=== PATIENT | female | born 1955 | race Caucasian/White ===

== ENCOUNTER 2019-11-27 07:58 | Outpatient (CLI) | payer OTHER, SELFPAY ==
--- NOTE | 2019-12-03 12:57 | SLEEP_ITS ---
Basic Nocturnal Polysomnogram. DATE OF STUDY: 11/27/2019 ORDERING PHYSICIAN: Kiel Tadeo M.D. REASON FOR THE STUDY: Obstructive sleep apnea syndrome. HISTORY: This is a 63-year-old female, 62 inches tall, weighing 160 pounds with a body mass index of 29.3. She has complaints of non-refreshing sleep and morning headache. This has been going on for more than several years. There is excessive daytime sleepiness. There is a family history with the father and sister, both having sleep apnea. She does not awaken from sleep feeling short of breath. She frequently awakens at night with heartburn. She frequently snores and occasionally it is loud enough that others complain about it. She does not have trouble sleeping with a cold and does not gasp for breath at night. Other people do not tell her that she has problems breathing at night. She occasionally sweats excessively at night. She does not notice her heart pounding at night. She does not fall asleep during the day involuntarily and does not have loss of muscle tone with strong emotion. She does not have daytime difficulties due to sleepiness and does not feel paralyzed on waking or falling asleep. She is never afraid to go to sleep. She does not have nightmares. She frequently remembers her dreams. She does not have vivid dreamlike scenes upon awakening or falling asleep. She does not have racing thoughts, feelings of sadness, depression, or anxiety. She does not have muscular tension. She does not notice parts of her body jerking. She does not kick at night and does not have crawly achy feelings in her legs. She does not have leg pain at night. There is no morning jaw pain. Her dentist tells her that she grinds her teeth at night. She frequently is bothered by pain during the day, occasionally has pain at night, frequently wakes up feeling stiff in the morning, occasionally with sore achy muscles. She frequently wakes up with pain in the neck and spine. She has fatigue and headaches. She estimates 7 hours of sleep at night. She goes to bed between 10 and 11:00 p.m. typically waking once at night for a few minutes to go to the bathroom. She wakes in the morning at 06:30 a.m. She does usually drink coffee or tea within 2 hours of going to bed. She takes naps in the day. A short nap may be refreshing. She is usually drowsy in the morning. MEDICAL COMORBIDITIES: Gastroesophageal reflux disease, thyroid nodule, hypertension, prior history of mild sleep apnea diagnosed in 2011, chronic lymphocytic leukemia, arthritis. MEDICATIONS: 1. Felodipine 5 mg a day. 2. Quinapril 40 mg a day. 3. Meloxicam 7.5 mg 1 to 2 times a day. 4. Vitamin D 50,000 units weekly. 5. Calcium citrate once daily. 6. Tacrolimus 2 times a day. 7. Prilosec 20 mg a day. HABITS: Never smoked tobacco. Caffeine, 2 sodas and 1 tea daily. No alcohol. No recreational drugs. DESCRIPTION OF THE STUDY: On the [place] Sleepiness Scale, the score is 10. This was conducted as a full night nocturnal polysomnogram using the [employer] multiple channel system including EOG, EEG, submental EMG, EKG, nasal and oral airflow using thermistors, nasal pressure sensors, chest and abdominal belts, body position data and pulse oximetry. The study was scored using CMS guidelines. Duration of the study was 449.5 minutes, sleep time was 397.3 minutes, sleep efficiency was 88.3%. Sleep latency was short at 4.7 minutes. REM latency is normal 85.5 minutes. There were 30 awakenings. The patient spent 10.7% of the study or 47.5 minutes awake after sleep onset. Sleep architecture showed 5.8% stage 1 sleep, 54.6% stage 2 sleep, 8.1% stage 3 sleep, and 20.8% stage REM. The patient spent 15.1% of the study supine, the remainder was nonsupine. The patient h
== END 2019-11-27 07:59 | disposition home or self-care (01) ==
LOC: ANHCSM 07:58
PROVIDERS: PCP Family Medicine; Visit Provider Otolaryngology
DX: G47.33 Obstructive sleep apnea (adult) (pediatric) (principal); G47.61 Periodic limb movement disorder
CPT/HCPCS: 95810

== ENCOUNTER 2019-12-20 10:32 | Outpatient (CLI) | payer OTHER, SELFPAY ==
[2019-12-20 11:00] LABS: Influenza Control Valid (Valid)
== END 2019-12-20 10:33 | disposition home or self-care (01) ==
LOC: CHSIMG 10:35
PROVIDERS: PCP Family Medicine; Visit Provider Family Medicine
DX: C91.90 Lymphoid leukemia, unspecified not having achieved remission (principal); J02.9 Acute pharyngitis, unspecified
CPT/HCPCS: 87081; 87804; 87880

== ENCOUNTER 2020-01-08 00:27 | Day surgery (SDC) | payer OTHER, SELFPAY ==
[2020-01-02 14:13] VITALS: BMI 27.3
[2020-01-08 12:45] VITALS: BP 110/54; PULSE 96; RESP 16; TEMP 36.9; O2SAT 100
[2020-01-08] MEDS: LACTATED RINGERS 1,000 ML 150 ML IV CONT (12:50)
--- NOTE | 2020-01-08 13:03 | WPDANESEPPF ---
Anes - Initial Pre Proc Eval Procedure: Operation Date: 01/08/20 13:45 Proposed Procedures p Esophagogastroduodenoscopy & Screening Colonoscopy - Alexis Thakkar MD Date/Time: 01/08/20 13:03 Surgeon: Alexis Thakkar MD Pre Op Diagnosis: neoplasm screening, GERD Patient Data Age: 64 Gender: F Height: 5 ft 3 in Weight: 69.5 kg Last Vital Signs Temp 36.9 C 01/08/20 12:45 Pulse 96 01/08/20 12:45 Resp 16 01/08/20 12:45 BP 110/54 L 01/08/20 12:45 Pulse Ox 100 01/08/20 12:45 Allergies Allergy/AdvReac Type Severity Reaction Status Date / Time No Known Allergies Allergy Verified 01/08/20 12:36 Home Medications Medication Instructions Recorded Confirmed Type ergocalciferol (vitamin D2) 50,000 unit PO WEEKLY 01/02/20 01/08/20 History estradiol 0.01 g VAGINAL 2XW 01/02/20 01/08/20 History felodipine 5 mg PO DAILY 01/02/20 01/08/20 History meloxicam 7.5 mg PO DAILY 01/02/20 01/08/20 History omeprazole 20 mg PO DAILY 01/02/20 01/08/20 History quinapril 40 mg PO DAILY 01/02/20 01/08/20 History tacrolimus 1 applic TOPICAL DAILY 01/02/20 01/08/20 History zoledronic agnm-qkyznqdu-haibv 5 mg IV USEASDIRECTD 01/02/20 01/08/20 History [Reclast] Patient hx anesthesia problems: none Family hx anesthesia problems: none PMFSH Past Medical History Medical History Arthritis GERD (gastroesophageal reflux disease) Hypertension WALDEMAR (obstructive sleep apnea) Family History Family History Other Family history of arthritis Hypertension Social History Social History Smoking status: Never smoker Alcohol intake: current Anes - Eval Final PreProcedure Day of Procedure 01/08/20 13:03 Patient weight: overweight Heart: regular rate and rhythm Lungs: clear to auscultation Airway: Mallampati scale class II Neurological: alert and oriented Last oral intake: >/= 8 hours ASA classification: III Emergent: no Anesthetic plan: proceed Anesthesia type and monitoring: general GIVS and standard monitoring Informed Consent: The patient's anesthetic plan and its attendant risks and benefits were discussed with the patient/family/POA. Questions were solicited and answers provided to the satisfaction of the patient/family/POA.
--- NOTE | 2020-01-08 14:11 | PM.HPGS ---
History of Present Illness History of Present Illness Consent: Risks, benefits, and alternatives have been discussed and questions answered. Patient agrees to proceed with procedure. Chief complaint: neoplasm screening, GERD Narrative: Verena Shepard is a 64 year old female with GERD on ppi for years, also colon polyps and due to have another colonoscopy Review of Systems Constitutional: Constitutional: Denies headache(s) and Denies weakness Eyes: Eyes: Denies blurry vision ENT: Reports Normal hearing present, Denies headache(s) and Denies neck pain Cardiovascular: Cardiovascular: Denies chest pain and Denies dyspnea Respiratory: Respiratory: Denies dyspnea Gastrointestinal: Gastrointestinal: Reports no additional gastrointestinal complaints Genitourinary: Genitourinary: Denies dysuria Musculoskeletal: Musculoskeletal: Denies neck pain Integumentary/Breasts: Skin/Breast: Denies dry skin Neurologic: Reports Normal hearing present, Denies headache(s) and Denies weakness Psychiatric: Psychiatric: Denies anxiety Endocrine: Endocrine: Denies change in body appearance Hematologic/Lymphatic: Hematologic/Lymphatic: Denies easy bleeding Allergic/Immunologic: Allergic/Immunologic: Denies urticaria PMF Past Medical History Medical History Arthritis GERD (gastroesophageal reflux disease) Hypertension WALDEMAR (obstructive sleep apnea) Family History Family History Other Family history of arthritis Hypertension Social History Social History Smoking status: Never smoker Alcohol intake: current Meds Home Medications and Allergies Home Medications Medication Instructions Recorded Confirmed Type ergocalciferol (vitamin D2) 50,000 unit PO WEEKLY 01/02/20 01/08/20 History estradiol 0.01 g VAGINAL 2XW 01/02/20 01/08/20 History felodipine 5 mg PO DAILY 01/02/20 01/08/20 History meloxicam 7.5 mg PO DAILY 01/02/20 01/08/20 History omeprazole 20 mg PO DAILY 01/02/20 01/08/20 History quinapril 40 mg PO DAILY 01/02/20 01/08/20 History tacrolimus 1 applic TOPICAL DAILY 01/02/20 01/08/20 History zoledronic juou-vybxcvbv-rnbms 5 mg IV USEASDIRECTD 01/02/20 01/08/20 History [Reclast] Allergies Allergy/AdvReac Type Severity Reaction Status Date / Time No Known Allergies Allergy Verified 01/08/20 12:36 Vital Signs Vital Signs - 24 hr 01/08/20 12:45 Temperature 98.5 F Pulse Rate 96 Respiratory Rate 16 Blood Pressure 110/54 L Pulse Oximetry 100 Exam Const: General: comfortable and no acute distress HENMT: General nose exam: Normal nares present Eyes: General: appearance normal, both eyes and all related structures Neck: Neck: no JVD Resp: Auscultation: clear to auscultation bilaterally Cardio: Rate: regular rate Rhythm: regular rhythm GI: Inspection: non-distended GI Palp: Yes Soft to palpation Skin: General skin exam: normal color Neuro: General: gait normal Speech: normal speech Extrem: General: normal to inspection Psych: Mental Status: mental status grossly normal Assessment and Plan Assessment and plan (1) Colon polyp: Qualifiers: Colon polyp type: unspecified Colon location: unspecified part of colon Qualified Code(s): K63.5 - Polyp of colon Code(s): K63.5 - Polyp of colon Status: Acute Assessment and Plan: she is due to have another colonoscopy (2) GERD (gastroesophageal reflux disease): Qualifiers: Esophagitis presence: esophagitis presence not specified Qualified Code(s): K21.9 - Gastro-esophageal reflux disease without esophagitis Code(s): K21.9 - Gastro-esophageal reflux disease without esophagitis Status: Acute Assessment and Plan: will proceed with egd and consider biopsies (3) WALDEMAR (obstructive sleep apnea)
[2020-01-08 14:46] VITALS: BP 102/54; PULSE 77; RESP 18; O2SAT 100
[2020-01-08 14:56] VITALS: BP 104/61; PULSE 71; RESP 20; O2SAT 100
[2020-01-08 15:06] VITALS: BP 96/62; PULSE 70; RESP 18; O2SAT 100
[2020-01-08 15:11] VITALS: BP 110/55; PULSE 74; RESP 20; O2SAT 100
== END 2020-01-08 15:36 | disposition home or self-care (01) ==
PROVIDERS: PCP Family Medicine; Visit Provider Internal Medicine Gastroenterology
PROC: 0DJ08ZZ Inspection of Upper Intestinal Tract, Via Natural or Artificial Opening Endoscopic (ICD-10-PCS; CPT 43235; principal; 2020-01-08 13:45)
DX: Z12.11 Encounter for screening for malignant neoplasm of colon (principal); K57.30 Diverticulosis of large intestine without perforation or abscess without bleeding; K64.8 Other hemorrhoids; Z86.010 Personal history of colon polyps; K21.9 Gastro-esophageal reflux disease without esophagitis; K31.7 Polyp of stomach and duodenum; K44.9 Diaphragmatic hernia without obstruction or gangrene; I10 Essential (primary) hypertension; G47.33 Obstructive sleep apnea (adult) (pediatric); M19.90 Unspecified osteoarthritis, unspecified site
CPT/HCPCS: 45378; 43239; 88305; J2704; J7120

== ENCOUNTER 2020-04-05 07:45 | Outpatient (CLI) | payer OTHER, SELFPAY ==
[2020-04-05 07:57] LABS: Hematocrit 38.9 % (35.0-49.0); Hemoglobin 12.2 g/dL (12.0-15.0); Mean Corpuscular HGB Conc 31.4 g/dL (32.0-36.0); Mean Corpuscular Hemoglobin 30.8 pg (27.0-31.0); Mean Corpuscular Volume 98.2 fL (78.0-102.0); Mean Platelet Volume 9.2 fl (9.2-11.8); Platelet Count Result 209 K/mm3 (150-420); Red Blood Count 3.96 M/mm3 (4.20-5.40); Red Cell Distribution Width 13.3 % (11.6-14.4)
[2020-04-05 08:44] LABS: White Blood Count 67.3 K/mm3 (4.8-10.8)
[2020-04-05 08:45] LABS: Band Neutrophils Percent 0 % (0-6); Basophils Percent Manual 0 % (0-1); Eosinophils Absolute Manual 0.67 K/mm3 (0.02-0.5); Eosinophils Percent Manual 1 % (1-6); Lymphocytes Absolute Manual 63.93 K/mm3 (1.1-4.5); Lymphocytes Percent Manual 95 % (18-44); Monocytes Absolute Manual 0.67 K/mm3 (0.1-0.90); Monocytes Percent Manual 1 % (3-9); Neutrophils Absolute Manual 2.01 K/mm3 (1.7-7.2); Neutrophils Percent Manual 3 % (46-73); Platelet Estimate Adequate (Adequate); Smudge Cells FEW; Total Cells Counted 100
[2020-04-05 08:56] LABS: Alanine Aminotransferase 22 U/L (14-59); Albumin Level 3.8 g/dL (3.4-5.0); Alkaline Phosphatase 61 U/L (46-116); Aspartate Amino Transferase 23 U/L (15-37); Bilirubin,Total 0.3 mg/dL (0.00-1.00); Blood Urea Nitrogen 15 mg/dL (7-18); Calcium 8.5 mg/dL (8.5-10.1); Carbon Dioxide 32 mmol/L (21-32); Chloride 101 mmol/L (98-108); Estimated Glomerular Filt Rate > 60; Glucose 88 mg/dL (70-99); Lactate Dehydrogenase 169 U/L (81-234); Osmolality Calculated 287 mOsm/kg (285-295); Sodium 139 mmol/L (136-145); Total Protein 6.5 g/dL (6.4-8.2)
== END 2020-04-05 07:46 | disposition home or self-care (01) ==
LOC: CHSLAB 07:48
PROVIDERS: PCP Family Medicine; Visit Provider Internal Medicine Medical Oncology
DX: C91.10 Chronic lymphocytic leukemia of B-cell type not having achieved remission (principal)
CPT/HCPCS: 36415; 80053; 83615; 85025

== ENCOUNTER 2020-04-22 17:07 | Outpatient (CLI) | payer OTHER, SELFPAY | END 2020-04-22 17:08 | disposition home or self-care (01) | LOC: CHSLAB 17:09 | PROVIDERS: PCP Family Medicine; Visit Provider Family Medicine | DX: R50.9 Fever, unspecified (principal); R07.0 Pain in throat | CPT/HCPCS: 87081; 87880 ==

== ENCOUNTER 2020-08-27 07:18 | Outpatient (CLI) | payer OTHER, SELFPAY ==
--- NOTE | ~2020-08-27 | XR_ITS ---
XR thoracic spine 3V DATE: 08/27/2020 07:45 INDICATION: Thoracic back pain. Previous T3 and T5 compression fractures TECHNIQUE: AP, lateral and swimmer views COMPARISON: 11/14/2019 2 view chest FINDINGS: There is cupping of the superior vertebral endplate of T2 consistent with mild compression fracture deformity. 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 No other fracture or any dislocation or bone destruction is evident. IMPRESSION: Chronic compression fracture deformity of upper thoracic spine Reviewed, dictated and finalized at location A.
[2020-08-27 07:34] LABS: Hematocrit 38.2 % (35.0-49.0); Hemoglobin 11.7 g/dL (12.0-15.0); Mean Corpuscular HGB Conc 30.6 g/dL (32.0-36.0); Mean Corpuscular Hemoglobin 31.2 pg (27.0-31.0); Mean Corpuscular Volume 101.9 fL (78.0-102.0); Mean Platelet Volume 9.4 fl (9.2-11.8); Platelet Count Result 203 K/mm3 (150-420); Red Blood Count 3.75 M/mm3 (4.20-5.40); Red Cell Distribution Width 13.9 % (11.6-14.4)
[2020-08-27 09:00] LABS: Alanine Aminotransferase 27 U/L (14-59); Albumin Level 4.1 g/dL (3.4-5.0); Alkaline Phosphatase 63 U/L (46-116); Anion Gap 6 mmol/L (8-16); Aspartate Amino Transferase 20 U/L (15-37); Bilirubin,Total 0.3 mg/dL (0.00-1.00); Blood Urea Nitrogen 17 mg/dL (7-18); Calcium 8.5 mg/dL (8.5-10.1); Carbon Dioxide 32 mmol/L (21-32); Chloride 104 mmol/L (98-108); Cholesterol 238 mg/dL (0-200); Estimated Glomerular Filt Rate > 60; Ferritin 103 ng/mL (8-252); Free T4 Free Thyroxine 0.96 ng/dL (0.76-1.46); Glucose 90 mg/dL (70-99); HDL Direct 63 mg/dL (40-60); LDL Cholesterol Calculated 157 mg/dL (<130); Magnesium 2.6 mg/dL (1.8-2.4); Osmolality Calculated 295 mOsm/kg (285-295); Sodium 142 mmol/L (136-145); Thyroid Stimulating Hormone 1.96 uIU/mL (0.36-3.74); Total Protein 6.7 g/dL (6.4-8.2); Triglycerides 88 mg/dL (0-150)
[2020-08-27 09:10] LABS: Neutrophils Percent Manual 10 % (46-73); Total Cells Counted 100; White Blood Count 79.3 K/mm3 (4.8-10.8)
[2020-08-27 09:11] LABS: Band Neutrophils Percent 0 % (0-6); Basophils Percent Manual 0 % (0-1); Eosinophils Percent Manual 0 % (1-6); Lymphocytes Absolute Manual 69.78 K/mm3 (1.1-4.5); Lymphocytes Percent Manual 88 % (18-44); Monocytes Absolute Manual 1.58 K/mm3 (0.1-0.90); Monocytes Percent Manual 2 % (3-9); Neutrophils Absolute Manual 7.93 K/mm3 (1.7-7.2); Platelet Estimate Adequate (Adequate)
[2020-08-30 10:45] LABS: Vitamin D 25 Hydroxy 59 ng/mL (30-100)
== END 2020-08-27 07:19 | disposition home or self-care (01) ==
LOC: CHSLAB 07:20
PROVIDERS: PCP Family Medicine; Visit Provider Family Medicine
DX: M81.0 Age-related osteoporosis without current pathological fracture (principal); M54.6 Pain in thoracic spine; C91.90 Lymphoid leukemia, unspecified not having achieved remission; I10 Essential (primary) hypertension; G47.62 Sleep related leg cramps; E04.1 Nontoxic single thyroid nodule
CPT/HCPCS: 36415; 72072; 80053; 80061; 82306; 82728; 83735; 84439; 84443; 85025

== ENCOUNTER 2020-09-10 14:47 | Outpatient (CLI) | payer OTHER, SELFPAY ==
--- NOTE | ~2020-09-10 | MR_ITS ---
EXAMINATION: MR thoracic spine wo con DATE: 09/10/2020 15:33 INDICATION: Thoracic spine pain. TECHNIQUE: Magnetic resonance imaging (MRI) of the thoracic spine was performed without intravenous c ontrast. Sagittal localizer T1-weighted FSE of the cervical spine was obtained. Thoracic spine sequen cuauhtemoc included sagittal T2-weighted FSE, sagittal T1-weighted FSE, sagittal STIR FSE, and axial T2-weig hted FSE. COMPARISON: Thoracic spine radiographs 08/27/2020 FINDINGS: There is a chronic burst fracture of T4 with 4/5 loss of height, retropulsion of bone 2 mm into central spinal canal, focal kyphosis, and mild central canal stenosis. There is a chronic compre ssion fracture of T2 with 1/5 loss of height. There are chronic compression fractures of T5 and T6 wi th up to 1/5 loss of height. There are hemangiomas in T6, T9, and T11 vertebral bodies. There is mild ly decreased disc height at T7-T8. At T5-T6, the disc is mildly bulging with mild central canal steno sis. There is multilevel facet joint osteoarthritis, moderate to severe bilaterally from T1-T2 throug h T3-T4. There is mild neural foraminal stenosis on the right at T1-T2, T2-T3, and T3-T4 and on the l eft that T1-T2 and T2-T3. The spinal cord signal intensity is normal. IMPRESSION: 1. Mild thoracic spondylosis. Reviewed, dictated and finalized at location B. LMAN
== END 2020-09-10 14:48 | disposition home or self-care (01) ==
LOC: ANHIMG 14:49
PROVIDERS: PCP Family Medicine; Visit Provider Family Medicine
DX: M47.894 Other spondylosis, thoracic region (principal)
CPT/HCPCS: 72146

== ENCOUNTER 2020-10-07 07:46 | Outpatient (CLI) | payer OTHER, SELFPAY ==
[2020-10-07 08:00] LABS: Hematocrit 38.3 % (35.0-49.0); Hemoglobin 11.8 g/dL (12.0-15.0); Mean Corpuscular HGB Conc 30.8 g/dL (32.0-36.0); Mean Corpuscular Hemoglobin 31.5 pg (27.0-31.0); Mean Corpuscular Volume 102.1 fL (78.0-102.0); Mean Platelet Volume 9.5 fl (9.2-11.8); Platelet Count Result 189 K/mm3 (150-420); Red Blood Count 3.75 M/mm3 (4.20-5.40); Red Cell Distribution Width 13.6 % (11.6-14.4)
[2020-10-07 08:24] LABS: White Blood Count 70.8 K/mm3 (4.8-10.8)
[2020-10-07 08:55] LABS: Band Neutrophils Percent 0 % (0-6); Eosinophils Percent Manual 1 % (1-6); Lymphocytes Absolute Manual 61.59 K/mm3 (1.1-4.5); Lymphocytes Percent Manual 87 % (18-44); Monocytes Absolute Manual 2.12 K/mm3 (0.1-0.90); Monocytes Percent Manual 3 % (3-9); Neutrophils Absolute Manual 6.37 K/mm3 (1.7-7.2); Neutrophils Percent Manual 9 % (46-73); Platelet Estimate Adequate (Adequate); Total Cells Counted 100
[2020-10-07 09:16] LABS: Alanine Aminotransferase 28 U/L (14-59); Albumin Level 4.1 g/dL (3.4-5.0); Alkaline Phosphatase 58 U/L (46-116); Anion Gap 9 mmol/L (8-16); Aspartate Amino Transferase 23 U/L (15-37); Bilirubin,Total 0.3 mg/dL (0.00-1.00); Blood Urea Nitrogen 11 mg/dL (7-18); Calcium 8.5 mg/dL (8.5-10.1); Carbon Dioxide 31 mmol/L (21-32); Chloride 103 mmol/L (98-108); Estimated Glomerular Filt Rate > 60; Glucose 90 mg/dL (70-99); Lactate Dehydrogenase 195 U/L (81-234); Osmolality Calculated 295 mOsm/kg (285-295); Potassium 3.9 mmol/L (3.5-5.1); Sodium 143 mmol/L (136-145); Total Protein 6.6 g/dL (6.4-8.2)
[2020-10-12 15:35] LABS: Immunoglobulin A 67 mg/dL (70-320); Immunoglobulin G 534 mg/dL (600-1540); Immunoglobulin M 32 mg/dL (50-300)
== END 2020-10-07 07:47 | disposition home or self-care (01) ==
PROVIDERS: PCP Family Medicine; Visit Provider Internal Medicine Infectious Disease
DX: C91.90 Lymphoid leukemia, unspecified not having achieved remission (principal)
CPT/HCPCS: 36415; 80053; 82784; 83615; 85025

== ENCOUNTER 2020-12-01 13:30 | Outpatient (CLI) | payer OTHER, SELFPAY ==
--- NOTE | ~2020-12-01 | XR_ITS ---
XR chest 2V DATE: 12/01/2020 13:51 INDICATION: History of tuberculosis TECHNIQUE: PA and lateral views COMPARISON: 11/14/2019 PA and lateral chest FINDINGS: Normal heart size. No hilar or mediastinal enlargement. No pulmonary infiltrate or consolidation, pleural effusion or pulmonary vascular congestion or pneumo thorax. There is severe anterior wedging and loss of height of T4 with associated gibbus. There is mild loss of height and anterior wedging at T5. These findings are stable since 11/14/2019. Diffuse osteopenia. Status post cholecystectomy IMPRESSION: No active cardiopulmonary disease or significant change since 11/14/2019 Reviewed, dictated and finalized at location A. GED CARE NURSE IMPRESSION: No active cardiopulmonary disease or significant change since 2019
== END 2020-12-01 13:31 | disposition home or self-care (01) ==
PROVIDERS: PCP Family Medicine; Visit Provider Family Medicine
DX: Z86.11 Personal history of tuberculosis (principal)
CPT/HCPCS: 71046

== ENCOUNTER 2020-12-11 12:33 | Outpatient (CLI) | payer OTHER, SELFPAY ==
[2020-12-11 12:45] LABS: Hematocrit 36.8 % (35.0-42.0); Hemoglobin 11.5 g/dL (11.7-13.8); Mean Corpuscular HGB Conc 31.3 g/dL (32.0-36.0); Mean Corpuscular Hemoglobin 31.7 pg (27.0-31.0); Mean Corpuscular Volume 101.4 fL (78.0-102.0); Mean Platelet Volume 9.5 fl (9.2-11.8); Platelet Count Result 195 K/mm3 (150-420); Red Blood Count 3.63 M/mm3 (4.20-5.40); Red Cell Distribution Width 13.2 % (11.6-14.4)
[2020-12-11 12:51] LABS: White Blood Count 74.3 K/mm3 (4.8-10.8)
[2020-12-11 13:09] LABS: Alanine Aminotransferase 28 U/L (14-59); Albumin Level 4.3 g/dL (3.4-5.0); Alkaline Phosphatase 59 U/L (46-116); Anion Gap 8 mmol/L (8-16); Aspartate Amino Transferase 25 U/L (15-37); Bilirubin,Total 0.3 mg/dL (0.00-1.00); Blood Urea Nitrogen 15 mg/dL (7-18); Calcium 9.5 mg/dL (8.5-10.1); Carbon Dioxide 31 mmol/L (21-32); Chloride 101 mmol/L (98-108); Estimated Glomerular Filt Rate > 60; Glucose 94 mg/dL (70-99); Lactate Dehydrogenase 193 U/L (81-234); Osmolality Calculated 290 mOsm/kg (285-295); Potassium 4.1 mmol/L (3.5-5.1); Sodium 140 mmol/L (136-145)
[2020-12-11 13:10] LABS: Band Neutrophils Percent 0 % (0-6); Eosinophils Absolute Manual 0.74 K/mm3 (0.02-0.5); Eosinophils Percent Manual 1 % (1-6); Lymphocytes Absolute Manual 66.87 K/mm3 (1.1-4.5); Lymphocytes Percent Manual 90 % (18-44); Monocytes Absolute Manual 1.48 K/mm3 (0.1-0.90); Monocytes Percent Manual 2 % (3-9); Neutrophils Percent Manual 7 % (46-73); Platelet Estimate Adequate (Adequate); Total Cells Counted 100
== END 2020-12-11 12:34 | disposition home or self-care (01) ==
LOC: CHSLAB 12:35
PROVIDERS: PCP Family Medicine; Visit Provider Internal Medicine Medical Oncology
DX: C91.10 Chronic lymphocytic leukemia of B-cell type not having achieved remission (principal)
CPT/HCPCS: 36415; 80053; 83615; 85025

== ENCOUNTER 2021-01-02 10:47 | Outpatient (CLI) | payer OTHER, SELFPAY ==
--- NOTE | ~2021-01-02 | XR_ITS ---
EXAMINATION: XR ribs RT 2V DATE: 01/02/2021 11:10 INDICATION: Chest and rib pain. TECHNIQUE: 3 views of the right ribs were obtained. COMPARISON: Chest radiograph dated 12/01/2020 FINDINGS: Minimally displaced fracture at the anterior right 10th rib. Visualized portions of the lungs are arron ar with no focal airspace opacities, pulmonary edema, pleural effusion or pneumothorax. Heart size is normal. Cholecystectomy clips in right upper quadrant. IMPRESSION: 1. Minimally displaced anterior right 10th rib fracture. No evident acute cardiopulmonary disease. Reviewed, dictated and finalized at location B. ER IMPRESSION: 1. Minimally displaced anterior right 10th rib fracture. No evident acute cardi opulmonary disease.
== END 2021-01-02 10:48 | disposition home or self-care (01) ==
LOC: CHSIMG 10:49
PROVIDERS: PCP Family Medicine; Visit Provider Family Medicine
DX: R07.9 Chest pain, unspecified (principal)
CPT/HCPCS: 71100

== ENCOUNTER 2021-01-06 15:06 | Outpatient (RCR) | payer OTHER, SELFPAY ==
--- NOTE | 2021-01-09 12:41 | PTOPEVAL ---
Thank you for referring Verena Shepard to [facility].? The patient is scheduled to be seen for therapy? __2__x/week for 8 visits. Please review, sign, date and return this plan of care RENATO. I agree with and certify that the following plan of care is medically necessary. Referring Physician Date Admitting Provider: Attending Provider: Amado Oliver, Referring Provider: *PT Outpatient Evaluation Start: 01/06/21 15:08 Freq: Status: Active Protocol: Document 01/06/21 15:00 FRANK (Rec: 01/09/21 12:40 FRANK [id number]) Therapy Assessment Status Assessment Status Assessment Status Evaluation Outpatient Past Medical History Neurological History Hx Neurological Disorders No Significant History Cardiovascular History Hx Hypertension Yes Respiratory History Hx Other Respiratory Disorders Yes: Latent TB Gastrointestinal History Hx Cholecystectomy Yes Hx Gastroesophageal Reflux Disease Yes Genitourinary History Hx Genitourinary Disorders No Significant History Musculoskeletal History Hx Arthritis Yes Hx Osteoporosis Yes Hematological History Hx Other Hematological Disorders Yes: CLL- chronic lymphocytic leukemia Endocrine History Hx Other Endocrine Disorders Yes: nodule- benign HEENT History Hx HEENT Disorders No Significant History Integumentary History Hx Other Skin Disorders Yes: rosacea Reproductive History Hx Post Menopausal Yes Psychosocial History Hx Psychiatric Disorders No Significant History Pain History History of Any Previous or Ongoing No Significant History Instance of Pain Anesthesia History Hx Anesthesia Reactions No Significant History Evaluation Information Problem Diagnosis s/p right TKA Onset 12/16/20 Subjective Information Pt. reports that she underwent Query Text:As Reported By Patient/ knee surgery on 12/16/20. She Family states that she has been participating in HH. She states that her last knee measurement was 110 degrees of flexion. She reports that she does have pain that gets more intense with activity. She reports that she is currently not driving and continues to use a walker for ambulation. Pt. goal for PT is to be able to walk normal and improve her knee mobility. Prior Level of Function Activity Level (Last 3 Months) Occupation
== END 2021-02-03 16:23 | disposition home or self-care (01) ==
LOC: CHSPT 15:06
PROVIDERS: Visit Provider Orthopaedic Surgery Adult Reconstructive Orthopaedic Surgery
DX: Z96.651 Presence of right artificial knee joint (principal)
CPT/HCPCS: 97016; 97110; 97112; 97161; 97530

== ENCOUNTER 2021-04-03 07:21 | Outpatient (CLI) | payer OTHER, SELFPAY ==
[2021-04-03 07:38] LABS: Hematocrit 36.2 % (35.0-42.0); Hemoglobin 11.3 g/dL (11.7-13.8); Mean Corpuscular HGB Conc 31.2 g/dL (32.0-36.0); Mean Corpuscular Hemoglobin 30.6 pg (27.0-31.0); Mean Corpuscular Volume 98.1 fL (78.0-102.0); Mean Platelet Volume 9.7 fl (9.2-11.8); Platelet Count Result 178 K/mm3 (150-420); Red Blood Count 3.69 M/mm3 (4.20-5.40)
[2021-04-03 08:37] LABS: White Blood Count 63.8 K/mm3 (4.8-10.8)
[2021-04-03 08:39] LABS: Band Neutrophils Percent 0 % (0-6); Basophils Percent Manual 0 % (0-1); Eosinophils Percent Manual 0 % (1-6); Lymphocytes Absolute Manual 61.24 K/mm3 (1.1-4.5); Lymphocytes Percent Manual 96 % (18-44); Monocytes Percent Manual 0 % (3-9); Neutrophils Absolute Manual 2.55 K/mm3 (1.7-7.2); Neutrophils Percent Manual 4 % (46-73); Total Cells Counted 100
[2021-04-03 08:40] LABS: Platelet Estimate Adequate (Adequate)
[2021-04-03 08:41] LABS: Smudge Cells FEW
[2021-04-03 08:53] LABS: Alanine Aminotransferase 28 U/L (14-59); Albumin Level 3.9 g/dL (3.4-5.0); Alkaline Phosphatase 76 U/L (46-116); Anion Gap 8 mmol/L (8-16); Aspartate Amino Transferase 25 U/L (15-37); Bilirubin,Total 0.3 mg/dL (0.00-1.00); Blood Urea Nitrogen 11 mg/dL (7-18); Calcium 8.6 mg/dL (8.5-10.1); Carbon Dioxide 31 mmol/L (21-32); Chloride 103 mmol/L (98-108); Cholesterol 150 mg/dL (0-200); Estimated Glomerular Filt Rate > 60; Glucose 90 mg/dL (70-99); HDL Direct 43 mg/dL (40-60); LDL Cholesterol Calculated 93 mg/dL (<130); Lactate Dehydrogenase 168 U/L (81-234); Osmolality Calculated 293 mOsm/kg (285-295); Potassium 4.1 mmol/L (3.5-5.1); Sodium 142 mmol/L (136-145); Total Protein 6.2 g/dL (6.4-8.2); Triglycerides 72 mg/dL (0-150)
[2021-04-06 11:50] LABS: Immunoglobulin A 57 mg/dL (70-320); Immunoglobulin G 570 mg/dL (600-1540)
[2021-04-06 12:26] LABS: Immunoglobulin M 24 mg/dL (50-300)
== END 2021-04-03 07:22 | disposition home or self-care (01) ==
LOC: CHSLAB 07:26
PROVIDERS: PCP Family Medicine; Visit Provider Internal Medicine Infectious Disease
DX: E78.2 Mixed hyperlipidemia (principal); C91.90 Lymphoid leukemia, unspecified not having achieved remission
CPT/HCPCS: 36415; 80053; 80061; 82784; 83615; 85025; 86334

== ENCOUNTER 2021-06-11 13:21 | Outpatient (CLI) | payer OTHER, SELFPAY | END 2021-06-11 13:22 | disposition home or self-care (01) | LOC: CHSLAB 13:23 | PROVIDERS: PCP Family Medicine; Visit Provider Family Medicine | DX: R07.0 Pain in throat (principal) | CPT/HCPCS: 87081; 87880 ==

== ENCOUNTER 2021-07-09 07:39 | Outpatient (CLI) | payer OTHER, SELFPAY ==
[2021-07-09 07:53] LABS: Hematocrit 38.3 % (35.0-42.0); Hemoglobin 11.8 g/dL (11.7-13.8); Mean Corpuscular HGB Conc 30.8 g/dL (32.0-36.0); Mean Corpuscular Hemoglobin 30.5 pg (27.0-31.0); Mean Platelet Volume 9.4 fl (9.2-11.8); Platelet Count Result 217 K/mm3 (150-420); Red Blood Count 3.87 M/mm3 (4.20-5.40); Red Cell Distribution Width 14.4 % (11.6-14.4)
[2021-07-09 08:57] LABS: Alanine Aminotransferase 31 U/L (14-59); Albumin Level 4.2 g/dL (3.4-5.0); Alkaline Phosphatase 68 U/L (46-116); Anion Gap 9 mmol/L (8-16); Aspartate Amino Transferase 22 U/L (15-37); Bilirubin,Total 0.4 mg/dL (0.00-1.00); Blood Urea Nitrogen 13 mg/dL (7-18); Calcium 8.9 mg/dL (8.5-10.1); Carbon Dioxide 30 mmol/L (21-32); Chloride 104 mmol/L (98-108); Estimated Glomerular Filt Rate > 60; Glucose 92 mg/dL (70-99); Lactate Dehydrogenase 165 U/L (81-234); Osmolality Calculated 296 mOsm/kg (285-295); Potassium 4.1 mmol/L (3.5-5.1); Sodium 143 mmol/L (136-145); Total Protein 6.7 g/dL (6.4-8.2)
[2021-07-09 09:08] LABS: Band Neutrophils Percent 0 % (0-6); Lymphocytes Absolute Manual 82.81 K/mm3 (1.1-4.5); Lymphocytes Percent Manual 91 % (18-44); Monocytes Absolute Manual 2.73 K/mm3 (0.1-0.90); Monocytes Percent Manual 3 % (3-9); Neutrophils Absolute Manual 4.55 K/mm3 (1.7-7.2); Neutrophils Percent Manual 5 % (46-73); Total Cells Counted 100
[2021-07-09 09:09] LABS: Eosinophils Absolute Manual 0.91 K/mm3 (0.02-0.5); Eosinophils Percent Manual 1 % (1-6); Platelet Estimate Adequate (Adequate)
[2021-07-12 12:44] LABS: Immunoglobulin A 62 mg/dL (70-320); Immunoglobulin G 647 mg/dL (600-1540); Immunoglobulin M 25 mg/dL (50-300)
== END 2021-07-09 07:40 | disposition home or self-care (01) ==
PROVIDERS: PCP Family Medicine
DX: C91.10 Chronic lymphocytic leukemia of B-cell type not having achieved remission (principal); D80.1 Nonfamilial hypogammaglobulinemia
CPT/HCPCS: 36415; 80053; 82784; 83615; 85025

== ENCOUNTER 2021-10-06 12:31 | Outpatient (CLI) | payer OTHER, SELFPAY ==
[2021-10-06 12:51] LABS: Hematocrit 35.9 % (35.0-42.0); Hemoglobin 11.6 g/dL (11.7-13.8); Mean Corpuscular HGB Conc 32.3 g/dL (32.0-36.0); Mean Corpuscular Hemoglobin 30.9 pg (27.0-31.0); Mean Corpuscular Volume 95.7 fL (78.0-102.0); Mean Platelet Volume 9.4 fl (9.2-11.8); Platelet Count Result 174 K/mm3 (150-420); Red Blood Count 3.75 M/mm3 (4.20-5.40); Red Cell Distribution Width 13.2 % (11.6-14.4)
[2021-10-06 13:06] LABS: White Blood Count 107.1 K/mm3 (4.8-10.8)
[2021-10-06 13:34] LABS: Band Neutrophils Percent 0 % (0-6); Lymphocytes Absolute Manual 100.67 K/mm3 (1.1-4.5); Lymphocytes Percent Manual 94 % (18-44); Monocytes Absolute Manual 2.14 K/mm3 (0.1-0.90); Monocytes Percent Manual 2 % (3-9); Neutrophils Absolute Manual 4.28 K/mm3 (1.7-7.2); Neutrophils Percent Manual 4 % (46-73); Platelet Estimate Adequate (Adequate); Total Cells Counted 100
[2021-10-06 14:04] LABS: Alanine Aminotransferase 23 U/L (14-59); Albumin Level 4.2 g/dL (3.4-5.0); Alkaline Phosphatase 70 U/L (46-116); Anion Gap 9 mmol/L (8-16); Aspartate Amino Transferase 18 U/L (15-37); Bilirubin,Total 0.5 mg/dL (0.00-1.00); Blood Urea Nitrogen 16 mg/dL (7-18); Calcium 8.7 mg/dL (8.5-10.1); Carbon Dioxide 31 mmol/L (21-32); Chloride 97 mmol/L (98-108); Estimated Glomerular Filt Rate > 60; Glucose 86 mg/dL (70-99); Lactate Dehydrogenase 188 U/L (81-234); Osmolality Calculated 284 mOsm/kg (285-295); Potassium 3.8 mmol/L (3.5-5.1); Sodium 137 mmol/L (136-145); Total Protein 6.5 g/dL (6.4-8.2)
[2021-10-08 21:32] LABS: Immunoglobulin A 56 mg/dL (70-320); Immunoglobulin G 590 mg/dL (600-1540); Immunoglobulin M 19 mg/dL (50-300)
== END 2021-10-06 12:32 | disposition home or self-care (01) ==
PROVIDERS: PCP Family Medicine
DX: E78.2 Mixed hyperlipidemia (principal); I10 Essential (primary) hypertension; C91.10 Chronic lymphocytic leukemia of B-cell type not having achieved remission; D80.1 Nonfamilial hypogammaglobulinemia
CPT/HCPCS: 36415; 80053; 82784; 83615; 85025

== ENCOUNTER 2025-04-17 01:28 | Day surgery (SDC) | payer MEDICARE, OTHER, SELFPAY ==
[2025-04-05 09:33] VITALS: BMI 29.7
--- OUTSIDE RECORDS SUMMARY | 2025-04-17 01:32 | XMS_ITS ---
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 She is had longstanding Raynaud's that long precedes her RS3PE. I discussed with her that if possible changing her beta-arash would likely improve this. If she needs additional antihypertensive a calcium channel arash such as amlodipine could helps symptoms . Assessment & Plan (11/27/2022 1:00 PM UX VISUAL DESIGNER): - Not currently having active flare of joint symptoms - PRN meloxicam if develops joint pain Assessment & Plan (10/11/2022 9:19 AM UX VISUAL DESIGNER): Her syndrome is likely associated with her CLL and I will await her CT to determine if treatment is being considered. I discussed with her this is the case, it will likely treat her arthritis as well. If this is negative, I would actually consider adding hydroxychloroquine since she has significant osteoporosis and we would like to avoid steroid treatment except when she has a severe flare. She does feel the increase meloxicam is otherwise successful. We discussed possible food influences but I think this is unlikely. I reviewed potential side effects of hydroxychloroquine and will review her CT when it was available. Inactive tuberculosis 09/10/2021 Assessment & Plan (12/03/2022 9:35 AM UX VISUAL DESIGNER): - history of latent tuberculosis with positive PPD. - completed 4 month course of rifampin in August 2021 and completed this in December 2021. - repeat Tspot performed on was negative. - no contraindication to starting obinutuzumab, no need for continued monitoring needed to assess for TB. - no need for further follow up with ID, patient is cleared from an ID standpoint as noted above. Assessment & Plan (11/27/2022 12:45 PM UX VISUAL DESIGNER): - Patient known to have history of latent TB with prior positive quantiferon gold - s/p treatment with rifampin x 4 months - Most recent T-spot checked in September 2022 prior to initiating treatment was negative Infected epidermoid cyst 07/23/2021 Hypogammaglobulinemia 04/15/2021 WALDEMAR (obstructive sleep apnea) 12/15/2020 Hypertension 12/15/2020 Assessment & Plan (11/27/2022 12:46 PM UX VISUAL DESIGNER): - Currently normotensive - Plan to continue home medications with metoprolol 100 mg daily, lisinopril 20 mg daily, hydrochlorothiazide 25 mg daily Hiatal hernia 12/15/2020 Primary osteoarthritis of both knees 11/19/2020 Complex tear of medial menis cus of right knee as current injury 07/09/2020 Thyroid nodule 01/09/2020 Osteoarthritis involving mul tiple joints on both sides of body 08/22/2019 Age-related osteoporosis wit hout current pathological fracture 08/01/2019 Compression fracture of spine 11/23/2018 Mid back pain 11/23/2018 Muscle spasm 11/23/2018 CLL (chronic lymphocytic leukemia) ([facility]) 07/2017 Assessment & Plan (11/27/2022 1:00 PM UX VISUAL DESIGNER): - Originally diagnosed with CLL in 2017 - Follows with Dr. Mitchell - After period of observation developed progressive anemia and splenomegaly, decision was made to proceed with treatment - Started obinutuzumab on 11/24 - Recently started on treatment with obinutuzumab (currently day +4) - Plan to continue allopurinol daily for TLS prophylaxis, check uric acid, phos levels Vitamin D deficiency disease 02/06/2013 Assessment & Plan (11/27/2022 11:03 AM UX VISUAL DESIGNER): - Continue daily vitamin D supplementation Osteoporosis 02/01/2013 Notalgia 12/11/2012 Current Treatment and Therapy Plans IV Maintenance Therapy Plan* Plan Start Date:01/19/2023 Plan Provider:Laura Mitchell MD Linked Problems CLL (chronic lymphocytic heavenly kemia) ([facility]) Treatment Medications No medications scheduled. Other Current Plans romosozumab ([facility]) THERAPY PLAN* Plan Start Date:08/10/2023 Plan Provider:Mo Diamond MD Linked Problems Age-related osteoporosis wit hout current pathological fracture Treatment Medications No medications scheduled. Zoledronic Acid (Reclast) Infusion* Plan Start Date:12/13/2024 Plan Provider:Mo Dimaond MD Linked Problems Age-related osteoporosis wit hout current pathological fracture Treatment Medications No medications scheduled. Zoledronic Acid (Reclast) Infusion* Plan Start Date:12/17/2024 Plan Provider:Mo Diamond MD Linked Problems Age-related osteoporosis wit hout current pathological fracture Treatment Medications No medications scheduled. Past Treatment and Therapy Plans Oncology Chemotherapy Treatment Plan Name Start Date Discontinue Date Treatment Medications Discontinue Reason Plan Provider Cycles oBINutuzumab / Venetoclax - CLL 3 01/11/2024 oBINutuzumab (GAZYVA) IVPB 1,000 mg in 290 mLoBINutuzumab (GAZYVA) IVPB 100 mg in 100 mLoBINutuzumab (GAZYVA) IVPB 900 mg in 250 mL Change in Level of Care Laura Mitchell MD 13 of 14 cycles started Lifetime Dose Tracking * Chemical Lifetime Dose Automatic Entry Manual Entr y DLP 1,570 mGycm 1,570 mGycm 0 mGycm Resolved Problems Problem Noted Date Diagnosed Date Resolved Date Fever 11/27/2022 2022 Assessment & Plan (11/27/2022 12:59 PM UX VISUAL DESIGNER): - Admitting with fever in the setting of recent initiation of obinutuzumab for CLL (currently day +4); differential includes bacterial vs. Viral infection vs. Delayed fever from obinutuzumab infusion - Neutrophil count at [facility] (~1400) - Treating for neutropenic fever with cefepime (11/27-) - Re-check blood cultures, UA at [facility] bland, not concerning for infection - Repeat CXR - Repeat RVP ([facility] flu/Covid swab was negative, but was not full viral panel)
--- OUTSIDE RECORDS SUMMARY | 2025-04-17 01:32 | XMS_ITS | Data Portability ---
[facility], [facility] IP Address [address] [place] [address] Assessment No assessment recorded. Plan of Treatment Reminders Order Date Submit Date Provider Last Modified By Organization Details Last Modified Time Details Appointments None recorded. Lab rapid flu (A+B) 2023 024 [email or web address] In-Office Order, Internal Use Only DO Not Attach Compendium DO Not Attach Compendium, Do Not Delete/merge, 14:29:22 rapid SARS CoV + SARS CoV 2 Ag, QL IA, respirato ry specimen 2023 024 tdrummonds In-Office Order, Internal Use Only DO Not Attach Compendium DO Not Attach Compendium, Do Not Delete/merge, [id number] 14:29:17 rapid strep group A, throat 2023 024 [email or web address] In-Office Order, Internal Use Only DO Not Attach Compendium DO Not Attach Compendium, Do Not Delete/merge, 14:29:34 Referral None recorded. Procedures None recorded. Surgeries None recorded. Imaging None recorded. Medication Orders None recorded. Patient TargetsNo targets recorded. Patient Instructions Encounter Date Encounter Id Patient Instructions Last Modified By Organization Details Last Modified Time 02/25/2024 [id number] -continue zyrtec/claritin and flonase for sinus congestion/drain age and mucinex prn chest congestion -tylenol/motrin prn fever/pain -increase fluids/rest -RTC as needed [email or web address] Not available 02/25/2024 14:33:03 Reason for Referral None Reported. Results Created Date Observation Date Name Description Value Unit Range Abnormal Flag Note LastModifiedBy Organization Detail LastModifiedTime 02/25/20 24 02/25/2024 rapid strep group A, throa t Strep A negati ve Not Available In-Office Order Internal Use Only DO Not Attach Compendium DO Not Attach Compendium, Do Not Delete/merge, [id number] 02/25/2024 14:28:52 02/25/2002/25/2024 rapid flu (A+B) Flu A negati ve Not Available In-Office Order Internal Use Only DO Not Attach Compendium DO Not Attach Compendium, Do Not Delete/merge, [id number] 02/25/2024 14:28:47 02/25/2002/25/2024 rapid flu (A+B) Flu B negati ve Not Available In-Office Order Internal Use Only DO Not Attach Compendium DO Not Attach Compendium, Do Not Delete/merge, [id number] 02/25/2024 14:28:47 02/25/2002/25/2024 rapid SARS CoV + SARS CoV 2 Ag, QL IA, respi rator y speci men Unknown Analyte negati ve Not Available In-Office Order Internal Use Only DO Not Attach Compendium DO Not Attach Compendium, Do Not Delete/merge, [id number] 02/25/2024 14:28:48 Result Notes None recorded. Procedures Surgical History Date Name Laterality Status Provider Name and Address Organization Details Recorded Time Gallbladder completed [facility] 02/25/2024 14:18:42 total knee replacement completed [facility] 02/25/2024 14:18:53 Imaging Results None recorded. Procedure Notes None recorded. Medical Equipment None Reported. Allergies No known drug allergies Medications Name Sig Start Date Stop Date Status Note LastModified by Organization Details LastModified Time atorvastati n 10 mg tablet TAKE ONE TABLET BY MOUTH TUESDAY, TUESDAY , TUESDAY active Not Available Not Available No t Available fluconazole 150 mg tablet TAKE 1 TABLET BY MOUTH DIRECTED active Not Available Not Available No t Available benzonatate 200 mg capsule 02/24 completed Not Available Not Available Not Available metoprolol succinate ER 50 mg tablet,exte nded release 24 hr TAKE 1 TABLET BY MOUTH DAILY active Not Available Not Available No t Available lisinopril 20 mg tablet TAKE 1 TABLET BY MOUTH DAILY active Not Available Not Available No t Available fluorouraci l 5 % topical cream APPLY TOPICALLY TO THE AFFECTED AREA TWICE DAILY FOR 21 DAYS active Not Available Not Available No t Available meloxicam 7.5 mg tablet TAKE 1 TABLET BY MOUTH DAILY NEEDED active Not Available Not Available No t Available oseltamivir 75 mg capsule TAKE 1 CAPSULE BY MOUTH DAILY FOR 10 DAYS active Not Available Not Available No t Available omeprazole 20 mg capsule,del ayed release TAKE ONE TO TWO CAPSULES BY MOUTH DAILY active Not Available Not Available No t Available hydrochloro thiazide 25 mg tablet TAKE 1 TABLET BY MOUTH DAILY active Not Available Not Available No t Available ergocalcife rol (vitamin D2) 1,250 mcg (50,000 unit) capsule TAKE 1 CAPSULE BY MOUTH ONCE A WEEK active Not Available Not Available No t Available levofloxaci n 500 mg tablet TAKE 1 TABLET BY MOUTH DAILY FOR 7 DAYS 02/24 completed Not Available Not Available Not Available estradiol 0.01% (0.1 mg/gram) vaginal cream INSERT 1G BY VAGINAL ROUTE ONCE WEEKLY active Not Available Not Available No t Available methylpredn isolone 4 mg tablets in a dose pack FOLLOW PACKAGE DIRECTION S 02/24 completed Not Available Not Available Not Available albuterol sulfate HFA 90 mcg/actuati on aerosol inhaler INHALE 2 PUFFS BY MOUTH EVERY 6 HOURS NEEDED FOR WHEEZING OR COUGH active Not Available Not Available No t Available amoxicillin 875 mg-potassiu m clavulanate 125 mg tablet TAKE 1 TABLET BY MOUTH TWICE DAILY UNTIL ALL TAKEN 02/24 completed Not Available Not Available Not Available chlorhexidi ne gluconate 0.12 % mouthwash active Not Available Not Available No t Available Vitals Date Recorded Body height Body mass index (BMI) Body weight Body temperature Heart rate Respiratory rate Oxygen saturation Oxygen saturation in Arterial blood by Pulse oximetry Systolic blood pressure Diastolic blood pressure Provider Name and Address Organization Details Last Updated DateTime 4 157.48 cm 29.3 kg/m2 73944.7 8 g 98.1 [degF] 81 /min 16 /min 98 % 98 % 150 mm[Hg] 84 mm[Hg] Angeles COPELAND [facility] 4 14:17:16 Social History Question Answer Notes LastModified by Organizat ion Details LastModified Time Tobacco Smoking Status Never Smoker [place] Shikha campbell [facility] 02/25/2024 14:18:28 What Was The Date Of Your Most Recent Tobacco Screening? 02/25/2024 Information not available 02/25/2024 Sex: Unknown Functional Status Question Answer Note LastModified by Organization D etails LastModified Time Do you or have you ever used any other forms of tobacco or nicotine? No Information not available 02/25/2024 Mental Status None recorded. Family History Nothing Reported. Medical History Condition Response CANCER: SPECIFY Y Gynecological HistoryNo gynecological history recorded. Obstetrics History GPAL:G 0 P 0 0 0 0 Past Encounters Encounter ID Performer Location Encounter Start Date Encounter Closed Date Diagnosis/Indication Diagnosis SNOMED-CT Code Diagnosis ICD10 Code Diagnosis Note [id number] AARON KAUR [facility] [address] [place] [address] 02/25/2024 13:47:45 02/27/2024 17:49:38 Viral upper respiratory tract infection 707239658 J06.9 Rapid COVID, flu, and strep negative.A dvised patient to retest in 12-24 hours for confirmati on. Health Concerns Section Related Observation LastModified by Organization Detai ls LastModified Time None Recorded Concern Status LastModified by Organization Details LastModified Time None Recorded Advance Directives Directive None Recorded Payers Insurance Date Sequence Insurance Name Policy Number Policy [place] Covered Member ID [place] Member ID Guarantor Name 03/03/2025 1 [place] Verena J [facility] [id number] [facility] 02/27/2024 2 [facility] (MEDICARE SUPPLEMENT) Verena J [facility] [id number] [facility] Notes Date Note Type Note Provider Name and Address Organization Details Recorded Time 02/25/2024 text/html 68 year old female presents for congestion, runny nose, scratchy throat and cough since yesterday. 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 She presents for covid, flu and strep testing. Patient has used antihistamines, sudafed, and flonase with relief. She has NKDA. AARON KAUR [address], [place], [address], [facility] 02/25/2024 14:33:16 OBGyn Episode No OBEpisode recorded.
--- OUTSIDE RECORDS SUMMARY | 2025-04-17 01:33 | XMS_ITS | Encounter Summary ---
Author Organization [facility] Address [address] [place] [address] Phone Care Team Providers Care Power Press Supervisor Name Role Phone Maite Farusto MD Primary Care Provider Laura Mitchell MD Unavailable [phone] Encounter Details Date Type Department Care Team (Late st Contact Info) Description 11/05/2022 Social Work [facility] Oncology [facility] 7[address] [place] [address] [place] [address] Trisha Kay, [facility] Social History Tobacco Use Types Packs/Day Years Used Date Smoking Tobacco: Never Smokeless Tobacco: Never AUDIT-C Answer Date Recorded Q1: How often do you have a drink containing alc ohol? 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 Author CCM Chronic Pain Care Plan Chronic Care Management No Sheyla Cervantes Note: Problem: Chronic Pain Goals: 1. Minimize further functional decline 2. Maximize quality of life 3. Control pain Strategies: - Activity/exercise program recommendation - Conservative stepwise pain medicine strategy with multi-disciplinary approach - Recommend healthy lifestyle strategies and compensatory methods as needed documented as of this encounter Visit Diagnoses Not on filedocumented in this encounter Care Teams Power Press Supervisor Relationship Specialty Start Date End Date Maite Frausto MD [address] [place] [id number] PCP - General 02/23/17 Laura Mitchell MD [address] [place] [address] Medical Oncologist/Regional Safety Manager Medical Oncology 11/30/22 documented as of this encounter
--- OUTSIDE RECORDS SUMMARY | 2025-04-17 01:33 | XMS_ITS | Clinical Summary ---
Author Organization [facility] Address [address] [place] [address] Phone Care Team Providers Care Foreman/Project Manager Name Role Phone Maite Frausto MD Primary Care Provider Laura Mitchell MD Unavailable [phone] Allergies Active Allergy Reactions Criticality Noted Date Comments Nickel Redness Low 01/14/2021 Medications omeprazole (PriLOSEC) 20 mg capsuleIndicati ons:gerd Take 1 capsule (20 mg total) by mouth every morning Active cholecalciferol (VITAMIN D-3) 25 mcg (1,000 unit) tabletIndicatio ns:supplement Take 1 tablet (1,000 Units total) by mouth every morning Active atorvastatin (LIPITOR) 10 mg tabletIndicatio ns:hyperlipidem ia Take 1 tablet (10 mg total) by mouth 3 (three) times a week M, W, F 1 Active fluticasone propionate (FLONASE) 50 mcg/actuation nasal sprayIndication s:Allergic Rhinitis Administer 1 spray into each nostril daily as needed Active zinc gluconate 30 mg tabletIndicatio ns:supplement Take 1 tablet by mouth every morning Active phenoL (castellani paint) 1.5 % liquid Apply 1 application topically daily as needed (rash) 3 Active lisinopriL (PRINIVIL,ZESTR IL) 20 mg tabletIndicatio ns:hypertension Take 1 tablet (20 mg total) by mouth every morning 3 Active cetirizine (ZyrTEC) 10 mg tabletIndicatio ns:Seasonal Allergic Rhinitis Take 1 tablet (10 mg total) by mouth daily as needed for allergies Active hydroCHLOROthia zide (HYDRODIURIL) 25 mg tabletIndicatio ns:hypertension Take 1 tablet (25 mg total) by mouth every morning 3 Active Lactobac 40-Bifido 3-S.thermop (Probiotic) 100 billion cell capsuleIndicati ons:supplement- probiotic Take 1 tablet by mouth every morning Active ergocalciferol (VITAMIN D) 50,000 unit capsuleIndicati ons:Vitamin D deficiency Take 1 capsule (50,000 Units total) by mouth every 14 (fourteen) days 6 capsule 3 4 07/16/20 25 Active estradioL (ESTRACE) 0.01 % (0.1 mg/gram) vaginal creamIndication s:Atrophic Vaginitis associated with Menopause Insert 2 g into the vagina 2 (two) times a week HOLD FOR 4 WEEKS AFTER SURGERY 4 Active acetaminophen (TYLENOL) 500 mg tablet Take 2 tablets (1,000 mg total) by mouth every 8 (eight) hours 90 tablet 1 4 Active meloxicam (MOBIC) 7.5 mg tablet Take 1 tablet (7.5 mg total) by mouth daily 30 tablet 4 Active calcium carbonate-mag oxide 250-155 mg tablet Take 250 mg by mouth daily Active Active Problems Problem Noted Date Diagnosed Date [...] . Assessment & Plan (11/27/2022 1:00 PM PULP MAKER): - Not currently having active flare of joint symptoms - PRN meloxicam if develops joint pain Assessment & Plan (10/11/2022 9:19 AM PULP MAKER): Her syndrome is likely associated with her [...] 09/10/2021 Assessment & Plan (12/03/2022 9:35 AM PULP MAKER): - history of latent tuberculosis with positive [...] above. Assessment & Plan (11/27/2022 12:45 PM PULP MAKER): - Patient known to have history of latent TB with prior positive quantiferon gold - s/p treatment with rifampin x 4 months - Most recent T-spot checked in September 2022 prior to initiating treatment was negative Infected epidermoid cyst 07/23/2021 Hypogammaglobulinemia 04/15/2021 WALDEMAR (obstructive sleep apnea) 12/15/2020 Hypertension 12/15/2020 Assessment & Plan (11/27/2022 12:46 PM PULP MAKER): - Currently normotensive - Plan to continue [...] Muscle spasm 11/23/2018 CLL (chronic lymphocytic leukemia) ([facility]) 07/2017 Assessment & Plan (11/27/2022 1:00 PM PULP MAKER): - Originally diagnosed with CLL in 2017 [...] 02/06/2013 Assessment & Plan (11/27/2022 11:03 AM PULP MAKER): - Continue daily vitamin D supplementation Osteoporosis 02/01/2013 Notalgia 12/11/2012 Resolved Problems Problem Noted Date Diagnosed Date Resolved Date Fever 11/27/2022 2022 Assessment & Plan (11/27/2022 12:59 PM PULP MAKER): - Admitting with fever in the setting of recent initiation of obinutuzumab for CLL (currently day +4); differential includes bacterial vs. Viral infection vs. Delayed fever from obinutuzumab infusion - Neutrophil count at OSH bordeine (~1400) - Treating for neutropenic fever with cefepime (11/27-) - Re-check blood cultures, UA at OSH bland, not concerning for infection - Repeat CXR - Repeat RVP (OSH flu/Covid swab was negative, but was not full viral panel) Encounters Date Type Department Care Team Description 04/15/2025 Documentation [facility] Oncology [facility] Floor [address] [place] [address] January, RMA Appointment 03/04/2025 Orders Only [facility] [address] [place], [place] [address] [address] [place] [address] Zaira Chiang RN from Last 3 Months Immunizations Immunization Administration Dates Next Due COVID-19 MRNA (MODERNA) .5 M L (50 MCG) VACCINE (12 YEARS AND UP) 08/15/2023 Hep B, Unspecified 10/31/1986 Influenza, Quad, Adjuvantate d, Intramuscular 08/15/2023,07/23/2022 Influenza, Unspecified 07/31/2020 MMR 10/31/2014 Moderna SARS-CoV-2 Monovalen t Vaccination (12+ YRS) 07/19/2022,12/28/2021,07/15/2021,11/24,10/27/2020 Moderna Sars-cov-2 Bivalent Vaccine 50 Mcg/0.5 mL (12+ YRS)-Blue/Mckenna 07/04/2024 Pneumococcal Polysaccharide PPV23 08/19/2021 Tdap 07/03/2019 Tetanus Toxoid, Unspecified 10/31/2010 ZOSTER Recombinant 11/16/2021,08/18/2021 Surgical History Surgery Date Site/Laterality Comments KNEE ARTHROSCOPY 10/31/2008 - 10/30/2009 Left meniscectomy KNEE ARTHROSCOPY 10/31/2017 - 10/30/2018 Right meniscectomy CHOLECYSTECTOMY 10/31/2011 - 10/30/2012 DILATION AND CURETTAGE OF UTERUS 10/31/1986 - 10/30/1987 COLONOSCOPY 10/31/2019 - 11/30/2019 KNEE ARTHROPLASTY CATARACT EXTRACTION Medical History Medical History Date Comments Age-related osteoporosis wit hout current pathological fracture Osteoporosis - (Added by TW Conv) Personal history of other di seases of the circulatory system History of hypertension - (A dded by TW Conv) Personal history of other di seases of the digestive system History of esophageal reflux - (Added by TW Conv) Arthritis Cancer (HCC) Gastric reflux Hypertension Osteoarthritis Raynaud phenomenon Tuberculosis Hx of tuberculosis Leukemia (HCC) Hyperlipidemia Hiatal hernia Sleep apnea CLL (chronic lymphocytic leukemia) (HCC) Family History Medical History Relation Name Comments Depression Daughter Cancer Father Depression Father Diabetes Father Heart disease Father Hypertension Father Arthritis Mother Cancer Mother Hypertension Mother Osteoporosis Mother Hip fracture Other MGM Gout Sister Heart disease Sister Osteoporosis Sister Alcohol abuse Son Depression Son Anesthesia problems Neg Hx Relation Name Status Comments Daughter Father Mother Other MGM Sister Son Social History Tobacco Use Types Packs/Day Years Used Date Smoking Tobacco: Never Passive Smoke Exposure: Never Smokeless Tobacco: Never Tobacco Cessation:Counseling Given: Not Answered AUDIT-C Answer Date Recorded Q1: How often do you have a drink containing alcohol? Never 08/09/2024 Q2: How many drinks containi ng alcohol do you have on a typical day when you are drinking? Patient does not drink Q3: How often do you have si x or more drinks on one occasion? Never 08/09/2024 Hunger Vital Sign Answer Date Recorded Within the past 12 months, y ou worried that your food would run out before you got the money to buy more. Never true 12/17/19 25 Within the past 12 months, t he food you bought just didn't last and you didn't have money to get more. Never true 12/17/2024 Personal Safety Answer Date Recorded Have you ever been in or are you currently in a harmful physical or emotional relationship or is someone making you feel afraid or unsafe? 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 on file Not on file Not on file Obstetrics History Last Filed Vital Signs Vital Sign Reading Time Taken Comments Blood Pressure 148/83 01/02/2025 11:07 AM PULP MAKER Pulse 76 01/02/2025 11:07 AM PULP MAKER Temperature 36.4 C (97.6 F) 01/02/2025 11:07 AM PULP MAKER Respiratory Rate 18 01/02/2025 11:0 7 AM PULP MAKER Oxygen Saturation 98% 01/02/2025 11: 07 AM PULP MAKER Inhaled Oxygen Concentration - - Weight 76.6 kg (168 lb 12.8 oz) 025 11:07 AM PULP MAKER Height 157.1 cm (5' 1.85) 01/02/2025 1 1:07 AM PULP MAKER Body Mass Index 31.02 01/02/2025 11:07 AM PULP MAKER Plan of Treatment Health Maintenance Due Date Last Done Comments Colon Cancer Screening-Colonoscopy 1955 Depression Screening 1955 Well Visit 65+ 2020 Covid-19 Vaccine (2023-2 5 season) 2024 07/09/2024, 07/04/2024, 02/02/2024, Additional history exists Fall Risk Assessment 08/10/2025 08/10/2024 Breast Cancer Screening-Mammogram 12/27/2025 12/27/2024, 12/27/2024, 12/19/2023, Additional history exists Osteoporosis Screening-Bone Density Scan 05/01/2026 05/01/2024, 04/19/2023, 04/12/2022, Additional history exists DTaP/Tdap/Td Vaccine (3 - Td or Tdap) 07/03/2029 07/03/2019, 08/26/2011 Hepatitis B Screening Completed 10/31/1986 Zoster Vaccine Completed 11/16/2021, 08/18/2021 Hepatitis C Screening Completed 11/18/2021 Pneumococcal vaccine 65+ Completed 024, 08/19/2021, 07/24/2018, Additional history exists Influenza Vaccine Completed 07/09/2024, , 07/23/2022, Additional history exists Goals Goal Patient Goal Type Associated Problems Recent Progress Patient-Stated? Author CCM Chronic Pain Care Plan Chronic Care Management Sheyla Copeland Note: Problem: Chronic Pain Goals: 1. Minimize further functional decline 2. Maximize quality of life 3. Control pain Strategies: - Activity/exercise program recommendation - Conservative stepwise pain medicine strategy with multi-disciplinary approach - Recommend healthy lifestyle strategies and compensatory methods as needed Medical Devices Implanted Type Area Catalyst Concentration Operator Device Identifier Shelf Expiration Date Model / Serial / Lot Clips Abdomen [employer] [id number] Smartset Medium Viscosity Cement 40gm Bone Gentamicin - [id number] Implanted:Qty: 1 on 12/16/2020 by Amado Oliver MD at [facility] Right: Knee [employer] 09/29/2021 [id number] / / [id number] [employer] 3122-040 Smartset Medium Viscosity Cement 40gm Bone Sterile - [id number] Implanted:Qty: 1 on 12/16/2020 by Amado Oliver MD at [facility] Right: Knee [employer] 07/30/2021 3122-040 / / [id number] [employer] rtho [id number] Legion 9mm Dished Knee 3-4 Insert Tibial Xlpe - [id number] Implanted:Qty: 1 on 12/16/2020 by Amado Oliver MD at [facility] Right: Knee [employer] [id number] 05/30/2025 [id number] / / [id number] [employer] [id number] Legion Cemented Male Taper Knee Right 4 Baseplate Tibial Titanium - [id number] Implanted:Qty: 1 on 12/16/2020 by Amado Oliver MD at [facility] Right: Knee [employer] [id number] 05/12/2030 [id number] / / [id number] [employer]o [id number] Rabia Ii Legion Spc Cruciate Retain Knee Right 5 Component - [id number] Implanted:Qty: 1 on 12/16/2020 by Amado Oliver MD at [facility] Right: Knee [employer] [id number] 08/31/2030 [id number] / / [id number] [employer] Smartset Medium Viscosity Cement 40gm Bone Gentamicin [id number] - [id number] Implanted:Qty: 1 on 08/09/2024 at [facility] Left: Knee [employer] 09/29/2025 [id number] / / [id number] [employer] Smartset Medium Viscosity Cement 40gm Bone Sterile 3122-040 - [id number] Implanted:Qty: 1 on 08/09/2024 at [facility] Left: Knee [employer] 11/30/2025 3122-040 / / [id number] [employer] Legion Cemented Male Taper Knee Left 4 Baseplate Tibial Titanium [id number] - [id number] Implanted:Qty: 1 on 08/09/2024 at [facility] Left: Knee [employer] 12/19/2033 [id number] / / [id number] [employer] Legion 11mm Dished Knee 3-4 Insert Tibial Xlpe [id number] - [id number] Implanted:Qty: 1 on 08/09/2024 at [facility] Left: Knee [employer] 05/07/2033 [id number] / / [id number] [employer]o Rabia Ii Legion Spc Cruciate Retain Knee Left 4 Component [id number] - [id number] Implanted:Qty: 1 on 08/09/2024 at [facility] Left: Knee [employer] 06/17/2033 [id number] / / [id number] Procedures Procedure Name Priority Date/Time Associated Diagnosis Comments DEXA TBS AXIAL SKELETON BONE DENSITY 1 OR MORE SITES Schedule Routine, Read Routine (OP Routine) 05/01/2024 2:10 PM CDT Age-related osteoporosis without current pathological fracture HEPATITIS C ANTIBODY Routine 11/18/2021 2:34 PM PULP MAKER CLL (chronic lymphocytic leukemia) (HCC) from Last 3 Months or Most Recently Relevant to Health Maintenance Results * Dexa TBS Axial Skeleton Bone Density 1 or more sites (05/01/2024 2:10 PM CDT) Anatomical Region Laterality Modality Wrist, Body N/A Radiographic Sarah ging Narrative 05/02/2024 10:04 AM CDT Patient Name: Verena Cox Date of : 1955 Date of scan: 05/01/2024 Bone mineral density was performed on a [employer] Discovery Densitometer. Based on machine cross-calibration and precision studies the least significant changes of this densitometer is 0.024 g/cm2 at the spine, 0.020 g/cm2 at the total proximal femur, and 0.014g/cm2 at the forearm. HISTORY: This is a 68 y.o. postmenopausal female with a history of leukemia, osteoporosis, and vitamin D deficiency. She reports that she has never smoked. She has never used smokeless tobacco. Currently on treatment with calcium, vitamin D, romosozumab (Evenity), and hormone replacement therapy, previously treated with alendronate (Fosamax), zoledronic acid (Reclast), and raloxifene (Evista), and current complaint of back pain. INDICATIONS: Menopause status, treatment monitoring, history of prior vertebral fracture, and history of osteoporosis. FINDINGS: BONE MINERAL DENSITY OF THE LUMBAR SPINE Bone Mineral Density (BMD) of the lumbar spine was measured from L1-L3 and the average density was calculated to be 0.820 gm/cm2. This corresponds to a T-score (standard deviations from the mean of young adults) of -1.8. When compared to the previous study of 04/19/23 there has been no significant changes in bone density. BONE MINERAL DENSITY OF THE PROXIMAL FEMUR Bone Mineral Density (BMD) of the left hip total was found to be 0.744 gm/cm2. This corresponds to a T-score standard deviations from the mean of young adults of -1.6. Femoral neck is 0.582 gm/cm2 with a T-score (standard deviations from the mean of young adults) of -2.4. When compared to the previous study of 04/19/23 there has been a 0.022 gm/cm (3.0%) increase in bone density that is considered significant. SUMMARY: Bone mineral density shows evidence of low bone mass at the lumbar spine and proximal femur and moderately increased fracture risk (Osteopenia). There has been a significant increase in bone density since previous measurement. L4 excluded from bone mineral density analysis of the lumbar spine because of bone density being more than 1 standard deviation discrepant relative to one adjacent vertebra. Clinical correlation is recommended. The lumbar spine Trabecular Bone Score is 1.224 which suggests partially degraded bone microarchitecture compared to the general population. Final decisions regarding diagnostic or therapeutic recommendations should include BMD, TBS, additional clinical risk factors as well the clinical context of the patient. Please see attached TBS results for further details. ADDITIONAL COMMENTS: Postmenopausal Women and Men Over 50: Diagnostic criteria: Osteoporosis: BMD at or below -2.5 T-score; Osteopenia (low bone mass): BMD between -1.0 and -2.5 T-score. If the patient has a history of a fragility fracture, a fracture that occurred with trauma equivalent to a fall from a standing position or less, then the diagnosis is osteoporosis regardless of bone density. The history and data sections of the bone mineral density scan were prepared by Kimberly Vázquez who is accredited by the International Society of Clinical Densitometry. The overall patient assessment and scan interpretation were performed by Mo Diamond M.D. who is certified by the International Society of Clinical Densitometry. [id number] us Mo Diamond MD IMG DXA PROCEDURES Final Result * Hepatitis C antibody (11/18/2021 2:34 PM PULP MAKER) Hep C Ab Nonreactive Nonreactive MARCIN CARMONA Comment:Antibodies to HCV no t detected. Does NOT exclude the possibility of recent exposure to HCV. Blood 11/18/2021 2:34 PM PULP MAKER 11/18/2021 3:00 PM PULP MAKER Laura Mitchell MD LAB MICROBIOLOGY - GENERAL ORDERABLES Edited Result - Final [facility] Department [place] [address] from Last 3 Months or Most Recently Relevant to Health Maintenance Insurance [facility]IC[facility] HMO/POS [facility] HMO/PPO Address: [address] [address] [place] [address] MEDICARE MEDICARE [employer] [facility] CHOICE PLUS [facility] HMO/PPO Address: [address] [address] [place] [address] MEDICARE [facility] Advance Directives For more information, please contact: [phone] Documents on File Type Date Recorded Patient Abattoir Supervisor Expl anation ADVANCE DIRECTIVE 12/16/2020 6:44 AM ADVANCE DIRECTIVE 12/15/2020 12:07 PM Mane r of Tire Balancer-Medical * Full Code (Latest Code Status on File) Date Activated Date Inactivated Comments 08/09/2024 12:05 PM 08/10/2024 3:15 PM * Full Code Date Activated Date Inactivated Comments 11/27/2022 10:54 AM 11/29/2022 6:16 PM * Full Code Date Activated Date Inactivated Comments 12/16/2020 12:30 PM 12/17/2020 1:59 PM Care Teams Foreman/Project Manager Relationship Specialty Start Date End Date Maite Frausto MD [facility] [place] [address] PCP - General 02/23/17 Laura Mitchell MD [address] [place] [address] Medical Oncologist/[facility] Medical Oncology 11/30/22
--- OUTSIDE RECORDS SUMMARY | 2025-04-17 01:33 | XMS_ITS | Encounter Summary ---
Author Organization [facility] Address [address] [place] [address] Phone Care Team Providers Care Senior Solutions Architect Name Role Phone Maite Frausto MD Primary Care Provider Laura Mitchell MD Unavailable [phone] Encounter Details Date Type Department Care Team (Late st Contact Info) Description 07/15/[address] Medical Office [address] [place] [address] Mo Diamond MD [address] [address] Social History Tobacco Use Types Packs/Day Years Used Date Smoking Tobacco: Never Smokeless Tobacco: Never AUDIT-C Answer Date Recorded Frequency of Alcohol Consumption Not on file 03/23/2023 Q2: How many drinks containi ng alcohol do you have on a typical day when you are drinking? Patient does not drink Frequency of Binge Drinking Not on file 03/01 Comments No Sex and Gender Information Value Date Recorded Sex Assigned at Not on file Legal Sex Female 4:15 AM WEB PAGE DEVELOPER Gender Identity Not on file Sexual Orientation [...] on filedocumented in this encounter Care Teams Senior Solutions Architect Relationship Specialty Start Date End Date Maite Frausto MD [facility] [place] [address] PCP - General 02/23/17 Laura Mitchell MD [address] [place] [address] Medical Oncologist/Anode Builder Medical Oncology 11/30/22 documented as of this encounter
--- OUTSIDE RECORDS SUMMARY | 2025-04-17 01:33 | XMS_ITS | Referral Summary ---
Author Organization [facility] Address [address] [place] [address] Phone Care Team Providers Care Contact Officer Name Role Phone Maite Frausto MD Primary Care Provider Laura Mitchell MD Unavailable [phone] Encounters Date Type Department Care Team Description 04/15/2025 Documentation [facility] Oncology [address] [place] [address] [place] [facility] Appointment 03/04/2025 Orders Only [facility] [address] [place] [address] Zaira Chiang RN from Last 3 Months Allergies Active Allergy Reactions Criticality Noted Date [...] . Assessment & Plan (11/27/2022 1:00 PM SIGHTER): - Not currently having active flare of joint symptoms - PRN meloxicam if develops joint pain Assessment & Plan (10/11/2022 9:19 AM SIGHTER): Her syndrome is likely associated with her [...] 09/10/2021 Assessment & Plan (12/03/2022 9:35 AM SIGHTER): - history of latent tuberculosis with positive [...] above. Assessment & Plan (11/27/2022 12:45 PM SIGHTER): - Patient known to have history of latent TB with prior positive quantiferon gold - s/p treatment with rifampin x 4 months - Most recent T-spot checked in September 2022 prior to initiating treatment was negative Infected epidermoid cyst 07/23/2021 Hypogammaglobulinemia 04/15/2021 WALDEMAR (obstructive sleep apnea) 12/15/2020 Hypertension 12/15/2020 Assessment & Plan (11/27/2022 12:46 PM SIGHTER): - Currently normotensive - Plan to continue [...] Muscle spasm 11/23/2018 CLL (chronic lymphocytic leukemia) ([facility]) 07/2017 Assessment & Plan (11/27/2022 1:00 PM SIGHTER): - Originally diagnosed with CLL in 2017 [...] 02/06/2013 Assessment & Plan (11/27/2022 11:03 AM SIGHTER): - Continue daily vitamin D supplementation Osteoporosis 02/01/2013 Notalgia 12/11/2012 Resolved Problems Problem Noted Date Diagnosed Date Resolved Date Fever 11/27/2022 2022 Assessment & Plan (11/27/2022 12:59 PM SIGHTER): - Admitting with fever in the setting [...] negative, but was not full viral panel) Immunizations Immunization Administration Dates Next Due COVID-19 [...] Tetanus Toxoid, Unspecified 10/31/2010 ZOSTER Recombinant 11/16/2021,08/18/2021 Social History Tobacco Use Types Packs/Day Years [...] on file Legal Sex Female 4:15 AM SIGHTER Gender Identity Not on file Sexual Orientation Not on file 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 on file Not on file Not on file Last Filed Vital Signs Vital Sign Reading Time Taken Comments Blood Pressure 148/83 01/02/2025 11:07 AM SIGHTER Pulse 76 01/02/2025 11:07 AM SIGHTER Temperature 36.4 C (97.6 F) 01/02/2025 11:07 AM SIGHTER Respiratory Rate 18 01/02/2025 11:0 7 AM SIGHTER Oxygen Saturation 98% 01/02/2025 11: 07 AM SIGHTER Inhaled Oxygen Concentration - - Weight 76.6 kg (168 lb 12.8 oz) 025 11:07 AM SIGHTER Height 157.1 cm (5' 1.85) 01/02/2025 1 1:07 AM SIGHTER Body Mass Index 31.02 01/02/2025 11:07 AM SIGHTER Plan of Treatment Not on file Goals Goal Patient Goal Type Associated Problems [...] as needed Medical Devices Implanted Type Area Unmanned Equipment Operator Device Identifier Shelf Expiration Date Model / Serial / Lot Clips Abdomen [employer] [id number] Smartset Medium Viscosity Cement 40gm Bone Gentamicin - [id number] Implanted:Qty: 1 on 12/16/2020 by Amado Oliver MD at [facility] Right: Knee [employer] 09/29/2021 [id number] / / [id number] [employer] 3122-040 Smartset Medium Viscosity Cement 40gm Bone Sterile - [id number] Implanted:Qty: 1 on 12/16/2020 by Amado Oliver MD at [facility] Right: Knee [employer] 07/30/2021 3122-040 / / [id number] [employer] rtho [id number] Legion 9mm Dished Knee 3-4 Insert Tibial Xlpe - [id number] Implanted:Qty: 1 on 12/16/2020 by Amado Oliver MD at [facility] Right: Knee [employer] [id number] 05/30/2025 [id number] / / [id number] [employer]o [id number] Legion Cemented Male Taper Knee Right 4 Baseplate Tibial Titanium - [id number] Implanted:Qty: 1 on 12/16/2020 by Amado Oliver MD at [facility] Right: Knee [employer] [id number] 05/12/2030 [id number] / / [id number] [employer]o [id number] Rabia Ii Legion Spc Cruciate Retain Knee Right 5 Component - [id number] Implanted:Qty: 1 on 12/16/2020 by Amado Oliver MD at [facility] Right: Knee [employer] [id number] 08/31/2030 [id number] / / [id number] [employer] Smartset Medium Viscosity Cement 40gm Bone Gentamicin [id number] - [id number] Implanted:Qty: 1 on 08/09/2024 at [facility] Left: Knee [employer] 09/29/2025 [id number] / / [id number] [employer] Smartset Medium Viscosity Cement 40gm Bone Sterile 3122-040 - [id number] Implanted:Qty: 1 on 08/09/2024 at [facility] Left: Knee [employer] 11/30/2025 3122-040 / / [id number] [employer] Legion Cemented Male Taper Knee Left 4 Baseplate Tibial Titanium [id number] - [id number] Implanted:Qty: 1 on 08/09/2024 at [facility] Left: Knee [employer] 12/19/2033 [id number] / / [id number] [employer] Legion 11mm Dished Knee 3-4 Insert Tibial Xlpe [id number] - [id number] Implanted:Qty: 1 on 08/09/2024 at [facility] Left: Knee [employer] 05/07/2033 [id number] / / [id number] [employer] r[employer]o Rabia Ii Legion Spc Cruciate Retain Knee Left 4 Component [id number] - [id number] Implanted:Qty: 1 on 08/09/2024 at [facility] Left: Knee [employer] 06/17/2033 [id number] / / [id number] Procedures Procedure Name Priority Date/Time Associated Diagnosis Comments DEXA TBS AXIAL SKELETON BONE DENSITY 1 OR MORE SITES Schedule Routine, Read Routine (OP Routine) 05/01/2024 2:10 PM CDT Age-related osteoporosis without current pathological fracture HEPATITIS C ANTIBODY Routine 11/18/2021 2:34 PM SIGHTER CLL (chronic lymphocytic leukemia) (HCC) from Last [...] Bone mineral density was performed on a HoloZimory Discovery Densitometer. Based on machine cross-calibration and [...] by the International Society of Clinical Densitometry. [id number] us Mo Diamond MD IMG DXA PROCEDURES Final Result * Hepatitis C antibody (11/18/2021 2:34 PM SIGHTER) Hep C Ab Nonreactive Nonreactive [facility] Comment:Antibodies to HCV no t detected. Does NOT exclude the possibility of recent exposure to HCV. Blood 11/18/2021 2:34 PM SIGHTER 11/18/2021 3:00 PM SIGHTER Laura Mitchell MD LAB MICROBIOLOGY - GENERAL ORDERABLES Edited Result - Final [facility] [place] [address] from Last 3 Months or Most Recently Relevant to Health Maintenance Insurance MEDIC[place] [id number] [facility] HMO [facility] HMO/POS [facility] MEDICARE [facility]ICARE [facility] CHOICE PLUS MEDICARE Advance Directives For more information, please contact: [phone] Documents on File Type Date Recorded Patient Spanish Interpreter/Translator Expl anation ADVANCE DIRECTIVE 12/16/2020 6:44 AM ADVANCE DIRECTIVE 12/15/2020 12:07 PM Mane r of Orderlies Teacher-Medical * Full Code (Latest Code Status on File) Date Activated Date Inactivated Comments 08/09/2024 12:05 PM 08/10/2024 3:15 PM * Full Code Date Activated Date Inactivated Comments 11/27/2022 10:54 AM 11/29/2022 6:16 PM * Full Code Date Activated Date Inactivated Comments 12/16/2020 12:30 PM 12/17/2020 1:59 PM Care Teams Contact Officer Relationship Specialty Start Date End Date Maite Frausto MD [address] [place] [address] PCP - General 02/23/17 Laura Mitchell MD [address] [place] [address] Medical Oncologist/Blister Rust Eradicator Medical Oncology 11/30/22
--- OUTSIDE RECORDS SUMMARY | 2025-04-17 01:33 | XMS_ITS | Clinical Summary ---
Author Organization [facility] [employer] Address [address] [place] [address] Care Team Providers Care Goldbeater Name Role Phone Maite Tee MD Primary Care Provider [phone] Source Comments [facility] [employer],non-owned Affiliates and Associated Physician Practices is amultiple site organization consisting of ambulatory clinics and hospital sitesin [place], [place], [place] and [place]. This disclosure is being madepursuant to the Care Everywhere program and may not contain all information available regarding this patient. Last updated 18.[facility] [employer] Allergies No known active allergies Medications * Be aware that medications may not be up to date on this document. Alwaysverify current medications with the patient. meloxicam (MOBIC) 7.5 MG tablet TK ONE T PO D 1 04/28/2018 Activ e vitamin D, ergocalciferol, (DRISDOL) 28152 UNITS capsule Active omeprazole (PRILOSEC) 20 MG capsule Take 20 mg by mouth Active felodipine CR 24hr (PLENDIL) 5 MG tablet Take 5 mg by mouth Active quinapril (ACCUPRIL) 40 MG tablet Take 40 mg by mouth Active vitamin D3 (CHOLECALCIFERO L) 1000 UNITS tablet Active CALCIUM-VITAMIN D PO Take by mouth once daily Active ketoconazole (NIZORAL) 2 % cream Apply to affected area 2 times daily 1 05/18/2018 Active ketoconazole (NIZORAL) 2 % creamIndication s:Facial dermatitis Apply to affected area on face twice daily. 30 days supply. 60 g 11 06/14/2018 Active pimecrolimus (ELIDEL) 1 % creamIndication s:Facial dermatitis Apply to affected area on face twice a day as needed for redness and itching. 30 days supply. 60 g 11 06/14/2018 Active doxycycline hyclate (VIBRAMYCIN) 100 MG tabletIndicatio ns:Acne Vulgaris Take 1 tablet by mouth 2 times daily Reasons: Common Acne 60 tablet 3 08/30/2018 Active Family History Medical History Relation Name Comments Cancer - Skin, Melanoma Neg Hx Cancer - Skin, Non Melanoma Neg Hx Social History Tobacco Use Types Packs/Day Years Used Date Smoking Tobacco: Never Smokeless Tobacco: Never Alcohol Use Standard Drinks/Week Comments Yes 0 (1 standard drink = 0.6 oz pur e alcohol) 1-2 drinks per week Comments Unknown Sex and Gender Information Value Date Recorded Sex Assigned at Not on file Legal Sex Female 10:27 AM CDT Gender Identity Not on file Sexual Orientation Not on file Last Filed Vital Signs Vital Sign Reading Time Taken Comments Blood Pressure - - Pulse - - Temperature - - Respiratory Rate - - Oxygen Saturation - - Inhaled Oxygen Concentration - - Weight 72.6 kg (160 lb) 05/10/2018 10:53 AM CDT Height 160 cm (5' 3) 05/10/2018 10:53 AM CDT Body Mass Index 28.34 05/10/2018 10:53 AM CDT Plan of Treatment Health Maintenance Due Date Last Done Comments BONE DENSITY TESTING 1955 COLOGUARD (AGES 45-75) - COL ON CA SCREENING 1955 COLON MONITORING 1955 COLONOSCOPY - COLON CA SCREENING 1955 CT COLONOGRAPHY - COLON CA SCREENING 1955 Colorectal Cancer Screening 1955 FIT - COLON CA SCREENING 1955 FLEX SIG - COLON CA SCREENING 1955 LIPID TESTING 1955 MAMMOGRAM 1955 HEPATITIS C SCREENING 11/26/1973 DTAP/TDAP/TD VACCINES (1 - Tdap) 1974 PNEUMOCOCCAL VACCINE 50+ (1 of 1 - PCV) 2005 ZOSTER VACCINE (1 of 2) 2005 SCREENING FOR DIABETES 04/11/2021 04/11/2018 COVID-19 VACCINE ( - 2023-2 5 season) 2024 DEPRESSION SCREENING 10/31/2024 INFLUENZA VACCINE (Season Ended) 2025 Respiratory Syncytial Virus (RSV) Vaccine Pt: or over 60 yrs (1 - 1-dose 75+ series) 2030 HEPATITIS B VACCINE Aged Out No longe r eligible based on patient's age to complete this topic HIB VACCINE Aged Out No longer eligi ble based on patient's age to complete this topic HPV VACCINE Aged Out No longer eligi ble based on patient's age to complete this topic MENINGOCOCCAL (Group B) VACC INE SHARED DECISION-MAKING Aged Out No longer eligibl e based on patient's age to complete this topic MENINGOCOCCAL GROUPS A/C/Y/W VACCINE Aged Out No longer eligible b ased on patient's age to [place] [address] Care Teams Goldbeater Relationship Specialty Start Date End Date Maite Tee MD PCP - General 03/20/18
--- OUTSIDE RECORDS SUMMARY | 2025-04-17 01:33 | XMS_ITS | Clinical Summary ---
Author Organization [facility] Address [address] [place] [address] Phone Care Team Providers Care Special Tester Name Role Phone Maite Frausto MD Primary Care Provider + Allergies No known active allergies Medications quinapril (ACCUPRIL) 40 MG Tablet Take 40 mg by mouth every evening. Active felodipine (PLENDIL) 5 MG TABLET SR 24 HR Take 5 mg by mouth daily. Active omeprazole (PRILOSEC) 20 MG CAPSULE DELAYED RELEASE Take 20 mg by mouth daily. Active ergocalciferol (VITAMIN D) 96170 UNIT Capsule Take 50,000 Units by mouth once a week. Active CALCIUM CARBONATE PO Take by mouth daily. Active vitamin D (CHOLECALCIFEROL ) 1000 UNIT Tablet Take 1,000 Units by mouth daily. Active estradiol (ESTRACE VAGINAL) 0.1 MG/GM Cream by Vaginal route. Active meloxicam (MOBIC) 7.5 MG TabletIndication s:CLL (chronic lymphocytic leukemia) (HCC) TK 1 T PO BID PRN P 0 11/28/2018 Active tacrolimus (PROTOPIC) 0.1 % OintmentIndicati ons:CLL (chronic lymphocytic leukemia) (HCC) Apply. 10/06/2018 Act lindsey atorvastatin (LIPITOR) 10 MG Tablet Take 10 mg by mouth. 11/10/2020 Active Active Problems Problem Noted Date Diagnosed Date Hypogammaglobulinemia 04/15/2021 CLL (chronic lymphocytic leukemia) 06/08/2017 Family History Medical History Relation Name Comments Alzheimer's Disease Father Relation Name Status Comments Father Social History Tobacco Use Types Packs/Day Years Used Date Smoking Tobacco: Never Smokeless Tobacco: Never PHQ-2 Answer Date Recorded Total Score - Questions 1-9 0 09/30 Comments Unknown Sex and Gender Information Value Date Recorded Sex Assigned at Not on file Legal Sex Female 2:04 PM CDT Gender Identity Not on file Sexual Orientation Not on file Last Filed Vital Signs Vital Sign Reading Time Taken Comments Blood Pressure 122/78 10/14/2021 8:14 AM EMBOSSER OPERATOR Pulse 74 10/14/2021 8:14 AM EMBOSSER OPERATOR Temperature 36.7 C (98 F) 10/14/2021 8:14 AM EMBOSSER OPERATOR Respiratory Rate - - Oxygen Saturation 98% 10/14/2021 8:14 AM EMBOSSER OPERATOR Inhaled Oxygen Concentration - - Weight 71.7 kg (158 lb) 10/14/2021 8:14 AM EMBOSSER OPERATOR Height 158.8 cm (5' 2.5) 10/14/2021 8:14 AM EMBOSSER OPERATOR Body Mass Index 28.44 10/14/2021 8:14 AM EMBOSSER OPERATOR Plan of Treatment Health Maintenance Due Date Last Done Comments Hepatitis C Virus (HCV) Screening 1955 Hepatitis B Immunization (2 of 3 - 19+ 3-dose series) 11/28/1986 10/31/1986 Cologuard 2000 Colonoscopy 2000 Colorectal Cancer Screening 2000 Immunochemical Fecal Occult Blood 2000 Zoster Immunization (2 of 2) 11/11/2021 09/16/2021 Pneumococcal Immunization (5 0+ years) (2 of 2 - PCV) 08/19/2022 08/19/2021 SARS-COV-2 Immunization (4 - season) 2024 07/15/2021, 11/24/2020, 10/27/2020 Influenza Immunization (Seas on Ended) 2025 09/03/2020, 07/31/2020 Respiratory Syncytial Virus (RSV) Immunization (Adult) (1 - 1-dose 75+ series) 2030 DTaP/Tdap/Td Immunization Discontinued 07/03/2019 TdaP Immunization Completed 07/03/2019 Pneumococcal Immunization Combined Discontinued 08/19/2021 Human Papillomavirus (HPV) Immunization Aged Out No longer eligible based on patient's age to complete this topic Meningococcal Immunization (ACWY) Aged Out No longer eligible based on patient's age to complete this topic Rotavirus Immunization Aged Out No lo nger eligible based on patient's age to complete this topic Insurance [employer] [facility] Care Teams Special Tester Relationship Specialty Start Date End Date Maite Frausto MD [address] [place] [address] PCP - General Family Medicine 06/06/17
--- OUTSIDE RECORDS SUMMARY | 2025-04-17 01:33 | XMS_ITS | Encounter Summary ---
Author Organization [facility] Address [address] [place] [address] Phone Care Team Providers Care Case Management Assistant Name Role Phone Maite Frausto MD Primary Care Provider Laura Mitchell MD Unavailable [phone] Encounter Details Date Type Department Care Team (Late st Contact Info) Description 07/04/[address] Medical Office [address] [place] [address] Mo Diamond MD [address] [address] Social History Tobacco Use Types [...] on file Legal Sex Female 4:15 AM LIFE UNDERWRITER Gender Identity Not on file Sexual Orientation [...] on filedocumented in this encounter Care Teams Case Management Assistant Relationship Specialty Start Date End Date Maite Frausto MD [facility] [place] [address] [place] [address] PCP - General 02/23/17 Laura Mitchell MD [address] [place] [address] Medical Oncologist/Digital Imaging Specialist Medical Oncology 11/30/22 documented as of this encounter
[2025-04-17 06:42] VITALS: BP 130/56; PULSE 74; RESP 16; TEMP 36.4; O2SAT 100; BMI 29.5
[2025-04-17] MEDS: LACTATED RINGERS 1,000 ML 150 ML IV CONT (07:02)
--- NOTE | 2025-04-17 07:33 | WPDANESEPPF ---
Anes - Initial Pre Proc Eval Procedure: Operation Date: 04/17/25 08:00 Proposed Procedures p Colonoscopy - Alexis Thakkar MD Date/Time: 04/17/25 07:33 Surgeon: Alexis Thakkar MD Pre Op Diagnosis: Personal Hx of colon polyps, unspecified Patient Data Age: 69 Gender: F Height: 1.57 m Weight: 73.1 kg Last Vital Signs Temp 97.5 F L 04/17/25 06:42 Pulse 74 04/17/25 06:42 Resp 16 04/17/25 06:42 BP 130/56 L 04/17/25 06:42 Pulse Ox 100 04/17/25 06:42 O2 Del Method Room Air 04/17/25 06:42 Allergies Allergy/AdvReac Type Severity Reaction Status Date / Time No Known Allergies Allergy Verified 04/05/25 09:15 Home Medications ?Medication ?Instructions ?Recorded ?Confirmed ?Type ergocalciferol (vitamin D2) 1,250 50,000 unit PO WEEKLY 01/02/20 04/17/25 History mcg (50,000 unit) capsule estradiol 0.01% (0.1 mg/gram) 0.01 g vaginal 2XW 01/02/20 04/17/25 History vaginal cream meloxicam 7.5 mg tablet 7.5 mg PO DAILY 01/02/20 04/17/25 History omeprazole 20 mg capsule,delayed 20 mg PO DAILY 01/02/20 04/17/25 History release tacrolimus 0.1 % topical ointment 1 applic topical DAILY 01/02/20 04/17/25 History zoledronic acid 5 mg/100 mL in 5 mg IV USEASDIRECTD 01/02/20 04/05/25 History mannitol 5 %-water intravenous piggybck (Reclast) atorvastatin 10 mg tablet 10 mg PO WEEKLY 04/05/25 04/17/25 History hydrochlorothiazide 25 mg tablet 25 mg PO DAILY 04/05/25 04/17/25 History lisinopril 20 mg tablet 20 mg PO DAILY 04/05/25 04/17/25 History Patient hx anesthesia problems: none Family hx anesthesia problems: none Results Review: All pre-operative results and documents have been reviewed as part of the pre-operative evaluation. [facility] Past Medical History Medical History (Updated 01/08/20 @ 14:12 by Alexis Thakkar MD) Osteoporosis Colon polyp Arthritis GERD (gastroesophageal reflux disease) WALDEMAR (obstructive sleep apnea) Hypertension Family History Family History Other Family history of arthritis Hypertension Social History Social History Smoking status: Never smoker Alcohol intake: never Substance use: never Substance use type: does not use Living arrangements: with family Spiritual care concerns: No Anes - Eval Final PreProcedure Day of Procedure 04/17/25 07:33 Patient weight: normal Heart: regular rate and rhythm Lungs: clear to auscultation Airway: Mallampati scale class II Neurological: alert and oriented Last oral intake: >/= 8 hours ASA classification: III Emergent: no Anesthetic plan: proceed Anesthesia type and monitoring: general GIVS and standard monitoring Results Review: All pre-operative results and documents have been reviewed as part of the pre-operative evaluation. Informed Consent: The patient's anesthetic plan and its attendant risks and benefits were discussed with the patient/family/POA. Questions were solicited and answers provided to the satisfaction of the patient/family/POA.
--- NOTE | 2025-04-17 07:52 | PM.HPGS ---
History of Present Illness History of Present Illness Consent: Risks, benefits, and alternatives have been discussed and questions answered. Patient agrees to proceed with procedure. Chief complaint: Personal Hx of colon polyps, unspecified Narrative: Verena Shepard is a 69 year old female with colon polyp, last colonoscopy 2019 Review of Systems Review of Systems: All systems reviewed & are unremarkable except as noted in HPI and below PMFSH Past Medical History Medical History (Updated 01/08/20 @ 14:12 by Alexis Thakkar MD) Osteoporosis Colon polyp Arthritis GERD (gastroesophageal reflux disease) WALDEMAR (obstructive sleep apnea) Hypertension Family History Family History Other Family history of arthritis Hypertension Social History Social History Smoking status: Never smoker Alcohol intake: never Substance use: never Substance use type: does not use Living arrangements: with family Spiritual care concerns: No Meds Home Medications and Allergies Home Medications ?Medication ?Instructions ?Recorded ?Confirmed ?Type ergocalciferol (vitamin D2) 1,250 50,000 unit PO WEEKLY 01/02/20 04/17/25 History mcg (50,000 unit) capsule estradiol 0.01% (0.1 mg/gram) 0.01 g vaginal 2XW 01/02/20 04/17/25 History vaginal cream meloxicam 7.5 mg tablet 7.5 mg PO DAILY 01/02/20 04/17/25 History omeprazole 20 mg capsule,delayed 20 mg PO DAILY 01/02/20 04/17/25 History release tacrolimus 0.1 % topical ointment 1 applic topical DAILY 01/02/20 04/17/25 History zoledronic acid 5 mg/100 mL in 5 mg IV USEASDIRECTD 01/02/20 04/05/25 History mannitol 5 %-water intravenous piggybck (Reclast) atorvastatin 10 mg tablet 10 mg PO WEEKLY 04/05/25 04/17/25 History hydrochlorothiazide 25 mg tablet 25 mg PO DAILY 04/05/25 04/17/25 History lisinopril 20 mg tablet 20 mg PO DAILY 04/05/25 04/17/25 History Allergies Allergy/AdvReac Type Severity Reaction Status Date / Time No Known Allergies Allergy Verified 04/05/25 09:15 Vital Signs Vital Signs - 24 hr 04/17/25 06:42 Temperature 97.5 F L Pulse Rate 74 Respiratory Rate 16 Blood Pressure 130/56 L Pulse Oximetry 100 Oxygen Delivery Room Air Exam Const: General: comfortable and no acute distress HENMT: Face/Nose/Sinus: Normal nares present Eyes: General: appearance normal, both eyes and all related structures Neck: Neck: no JVD Resp: Auscultation: clear to auscultation bilaterally Cardio: Rate: regular rate Rhythm: regular rhythm GI: Inspection: non-distended GI Palp: Yes Soft to palpation Skin: General skin exam: normal color Neuro: General: gait normal Speech: normal speech Extrem: General: normal to inspection Psych: Mental Status: mental status grossly normal Assessment and Plan Assessment and plan (1) Colon polyp: Qualifiers: Colon polyp type: unspecified Colon location: unspecified part of colon Qualified Code(s): K63.5 - Polyp of colon Code(s): K63.5 - Polyp of colon Status: Acute Assessment and Plan: colonoscopy
--- NOTE | 2025-04-17 08:08 | S_PTH ---
PATIENT: Verena Shepard LOC: [facility]#:[id number] AGE/SX: 69/F ROOM: RE04/17/[address]: Alexis Thakkar MD : 1955 BED: DIS: 04/17/2025 SPEC #: [id number] RECD: 04/17/25 09:41 STATUS: EVANGELINA CLEMONS #: [id number] DONTRELL: 04/17/25 08:[address]: Alexis Thakkar DEPT: [facility] Surgical RECD BY: Nilsa Contreras ENTERED: 04/17/25 09:41 SP TYPE: Surgical OTHR DR: Maite Stephens, Tissues: A - Colon Polypectomy Procedures: Hematoxylin and Eosin Stain Gross and Microscopic Level 4
[2025-04-17 08:11] VITALS: BP 78/39; PULSE 66; RESP 14; O2SAT 95
[2025-04-17 08:21] VITALS: BP 89/49; PULSE 63; RESP 18; O2SAT 100
[2025-04-17 08:31] VITALS: BP 103/58; PULSE 60; RESP 14; O2SAT 98
== END 2025-04-17 08:41 | disposition home or self-care (01) ==
PROVIDERS: PCP Family Medicine; Referring Provider Internal Medicine Gastroenterology; Visit Provider Internal Medicine Gastroenterology
PROC: 0DJD8ZZ Inspection of Lower Intestinal Tract, Via Natural or Artificial Opening Endoscopic (ICD-10-PCS; CPT 45378; principal; 2025-04-17 08:00)
DX: Z12.11 Encounter for screening for malignant neoplasm of colon (principal); K63.5 Polyp of colon; K64.8 Other hemorrhoids; K57.30 Diverticulosis of large intestine without perforation or abscess without bleeding; I10 Essential (primary) hypertension; K21.9 Gastro-esophageal reflux disease without esophagitis; G47.33 Obstructive sleep apnea (adult) (pediatric); M81.0 Age-related osteoporosis without current pathological fracture; M19.90 Unspecified osteoarthritis, unspecified site
CPT/HCPCS: 45380; 88305; J2003; J2704; J7120